=== PATIENT | female | born 1970 | race Caucasian/White ===

== ENCOUNTER 2025-05-24 16:35 | Inpatient (IN) | payer BC, SELFPAY ==
[2025-05-24] VITALS (15 sets, daily range): BP systolic 105–131; BP diastolic 65–93; BMI 30.2
[2025-05-24 12:54] LABS: Venous Blood Gas B.E. 12.6 mmol/L (-4 to +4); Venous Blood Gas O2 Sat % 100.0 %
--- NOTE | 2025-05-24 12:56 | ED.GENMED ---
History of Present Illness
<Willem Merritt PA-C - Last Filed: 05/24/25 14:25>
General
Chief Complaint: Breathing Problem
Time Seen by Provider: 05/24/25 12:36
History of Present Illness
History of Present Illness:
55-year-old female with multiple medical comorbidities most notable for CIDP and end-stage renal disease on dialysis presents from formerly [facility] due to hypoxia. Reportedly not on baseline O2 was noted to be hypoxic in the low 80s on 4
L nasal cannula. Per EMS improved to 100% on 15 L. She is unable to provide any history as she has baseline nonverbal status due to CIDP, reportedly is interactive with yes and no questions at baseline. I spoke with the shortly after the
patient's arrival and she indicates that the patient was recently admitted to a hospital in [facility] before being discharged to formerly [facility] for complications of her CIDP. She has been receiving her dialysis without
issues. Although her paperwork indicates full code the verbally acknowledges that he does not want any aggressive life-saving measures and authorizes DNR/DNI at this time
Review of Systems
<Willem Merritt PA-C - Last Filed: 05/24/25 14:25>
Review of Systems
Allergies reviewed?: Yes
All Other Systems: ROS reviewed and negative except as documented in HPI and ROS
Phy Exam
<Willem Merritt PA-C - Last Filed: 05/24/25 14:25>
Physical Exam
Physical Exam:
GEN: Toxic appearing, tachypneic
HEENT: Oral mucosa moist, no scleral icterus
Cardiac: Regular rate
Lung: Tachypneic with coarse rhonchi heard throughout all lung duarte
MSK: No gross deformity or injuries, dialysis fistula right upper extremity with palpable thrill
Skin: Good color, no pallor or jaundice, no rashes
Neuro: Somnolent, withdraws to pain x 4 extremities
Psych: Calm, cooperative
Scores
<Willem Merritt PA-C - Last Filed: 05/24/25 14:25>
Heart Failure Risk
Heart Failure Risk Score: Not Applicable
Sepsis
<Willem Merritt PA-C - Last Filed: 05/24/25 14:25>
Sepsis Screening
Sepsis Assessment: Sepsis Ruled Out
Sepsis Screen
Sepsis Screen: Sepsis Ruled Out
Date: 05/24/25
Time: 14:25
<Jaime Gotti DO - Last Filed: >
Sepsis Screen
Sepsis Screen: Possible Sepsis
Date: 05/24/25
Time: 12:56
Course
<Willem Merritt PA-C - Last Filed: 05/24/25 14:25>
Orders/Labs/Results
Orders:
Orders
05/24/25 12:37
CR Chest Portable - 1 View Urgent
Comment:
Reason For Exam: sob
Reason Study Needs to be Portable: Patient Unstable
05/24/25 12:41
Complete Blood Count/With Diff Urgent
Comprehensive Metabolic Panel Urgent
Troponin I Urgent
Venous Blood Gas Urgent
%Oxygen/Room Air: 100
05/24/25 12:43
CT Head W/o Iv Contrast Urgent
Comment:
Reason For Exam: AMS
Lactic Acid Q4H
Comment: CANCEL 2nd LACTIC ACID IF 1st LACTIC ACID IS LESS THAN 2
Blood Culture Q30M
MIGUEL ANGEL Source: Blood/Venous
Specimen Description:
05/24/25 12:44
Blood Culture Q30M
MIGUEL ANGEL Source: Blood/Venous
Specimen Description:
05/24/25 12:48
COVID-19 Antigen Urgent
Source: Nasal Swab
Influenza A+B Rapid Molecular Urgent
MIGUEL ANGEL Source: Nasal Swab
Specimen Description:
05/24/25 13:08
Urinalysis Reflex To Culture Urgent
Date Specimen was Collected: 05/24/25
Time Specimen was Collected: 13:02
Urine Microscopic Reflex Cult Urgent
Urine Culture Urgent
MIGUEL ANGEL Source: U
Specimen Description:
Date Specimen was Collected: 05/24/25
Time Specimen was Collected: 13:02
05/24/25 13:36
Furosemide [Lasix] 40 mg IV NOW STA
Abnormal Lab Results
05/24/25 05/24/25 05/24/25
12:41 12:43 13:08
RBC 2.21 L 10^6/uL
(4.20-5.40)
Hgb 7.7 L g/dL
(12.0-16.0)
Hct 23.9 L %
(37.0-47.0)
MCV 108.1 H fL
(81.0-99.0)
MCH 34.8 H pg
(27.0-31.0)
MCHC 32.2 L g/dL
(33.0-37.0)
RDW 16.1 H %
(11.5-14.5)
Absolute Neuts (auto) 6.8 H 10^3/uL
(1.4-6.5)
Absolute Lymphs (auto) 0.7 L 10^3/uL
(1.2-3.4)
Absolute Monos (auto) 0.7 H 10^3/uL
(0.1-0.6)
Neutrophils % 80.5 H %
(42.2-75.2)
Lymphocytes % 8.6 L %
(20.5-51.1)
VBG pCO2 63 H mmHg
(35-48)
VBG pO2 168 H mmHg
(30-50)
VBG HCO3 39.0 H mmol/L
(22-27)
Sodium 132 L mmol/L
(135-145)
Chloride 93 L mmol/L
(98-107)
Carbon Dioxide 35 H mmol/L
(22-30)
BUN 50 H mg/dl
(7-17)
Creatinine 2.0 H mg/dL
(0.6-1.0)
Glucose 155 H mg/dl
(70-99)
Lactic Acid 0.5 L mmol/L
(0.7-2.0)
Total Protein 5.9 L g/dl
(6.3-8.2)
Albumin 3.2 L g/dl
(3.5-5.0)
Ur Occult Blood Reflex 4+ A
(Negative)
Urine Bilirubin 2+ A
(Negative)
Leukocyte Esterase Rfl 3+ A
(Negative)
Urine Albumin (Reflex) 3+ A
(Neg - Trace)
05/24/25 12:41
05/24/25 12:41
Vital Signs
Initial and Last Documented VS:
Initial Vital Signs
Pulse Resp BP Pulse Ox
91 28 118/93 100
05/24/25 12:33 05/24/25 12:33 05/24/25 12:33 05/24/25 12:33
Last Documented Vital Signs
Temp Pulse Resp BP Pulse Ox
97.9 F 93 21 119/71 100
05/24/25 13:03 05/24/25 13:00 05/24/25 13:00 05/24/25 13:00 05/24/25 13:09
<Jaime Gotti, DO - Last Filed: >
Orders/Labs/Results
Orders:
Orders
05/24/25 12:37
CR Chest Portable - 1 View Urgent
Comment:
Reason For Exam: sob
Reason Study Needs to be Portable: Patient Unstable
05/24/25 12:41
Complete Blood Count/With Diff Urgent
Comprehensive Metabolic Panel Urgent
Troponin I Urgent
Venous Blood Gas Urgent
%Oxygen/Room Air: 100
05/24/25 12:43
CT Head W/o Iv Contrast Urgent
Comment:
Reason For Exam: AMS
Lactic Acid Q4H
Comment: CANCEL 2nd LACTIC ACID IF 1st LACTIC ACID IS LESS THAN 2
Blood Culture Q30M
MIGUEL ANGEL Source: Blood/Venous
Specimen Description:
05/24/25 12:44
Blood Culture Q30M
MIGUEL ANGEL Source: Blood/Venous
Specimen Description:
05/24/25 12:48
COVID-19 Antigen Urgent
Source: Nasal Swab
Influenza A+B Rapid Molecular Urgent
MIGUEL ANGEL Source: Nasal Swab
Specimen Description:
05/24/25 13:08
Urinalysis Reflex To Culture Urgent
Date Specimen was Collected: 05/24/25
Time Specimen was Collected: 13:02
Urine Microscopic Reflex Cult Urgent
Urine Culture Urgent
MIGUEL ANGEL Source: U
Specimen Description:
Date Specimen was Collected: 05/24/25
Time Specimen was Collected: 13:02
05/24/25 13:36
Furosemide [Lasix] 40 mg IV NOW STA
Abnormal Lab Results
05/24/25 05/24/25 05/24/25
12:41 12:43 13:08
RBC 2.21 L 10^6/uL
(4.20-5.40)
Hgb 7.7 L g/dL
(12.0-16.0)
Hct 23.9 L %
(37.0-47.0)
MCV 108.1 H fL
(81.0-99.0)
MCH 34.8 H pg
(27.0-31.0)
MCHC 32.2 L g/dL
(33.0-37.0)
RDW 16.1 H %
(11.5-14.5)
Absolute Neuts (auto) 6.8 H 10^3/uL
(1.4-6.5)
Absolute Lymphs (auto) 0.7 L 10^3/uL
(1.2-3.4)
Absolute Monos (auto) 0.7 H 10^3/uL
(0.1-0.6)
Neutrophils % 80.5 H %
(42.2-75.2)
Lymphocytes % 8.6 L %
(20.5-51.1)
VBG pCO2 63 H mmHg
(35-48)
VBG pO2 168 H mmHg
(30-50)
VBG HCO3 39.0 H mmol/L
(22-27)
Sodium 132 L mmol/L
(135-145)
Chloride 93 L mmol/L
(98-107)
Carbon Dioxide 35 H mmol/L
(22-30)
BUN 50 H mg/dl
(7-17)
Creatinine 2.0 H mg/dL
(0.6-1.0)
Glucose 155 H mg/dl
(70-99)
Lactic Acid 0.5 L mmol/L
(0.7-2.0)
Total Protein 5.9 L g/dl
(6.3-8.2)
Albumin 3.2 L g/dl
(3.5-5.0)
Ur Occult Blood Reflex 4+ A
(Negative)
Urine Bilirubin 2+ A
(Negative)
Leukocyte Esterase Rfl 3+ A
(Negative)
Urine Albumin (Reflex) 3+ A
(Neg - Trace)
05/24/25 12:41
05/24/25 12:41
Vital Signs
Initial and Last Documented VS:
Initial Vital Signs
Pulse Resp BP Pulse Ox
91 28 118/93 100
05/24/25 12:33 05/24/25 12:33 05/24/25 12:33 05/24/25 12:33
Last Documented Vital Signs
Temp Pulse Resp BP Pulse Ox
97.9 F 93 21 119/71 100
05/24/25 13:03 05/24/25 13:00 05/24/25 13:00 05/24/25 13:00 05/24/25 13:09
<Willem Merritt PA-C - Last Filed: 05/24/25 14:25>
MDM/Problems Addressed
MDM/Problems Addressed:
Patient was gradually weaned down on oxygen and remained stable on 6 L, no apparent signs of infection at this time, feel that the etiology to her hypoxemia is most likely on the basis of severe volume overload. Apparently according to her nursing
facility this has been an issue for her over the past week but does tend to improve after dialysis treatment. Will admit to the hospitalist service for further management
I did speak with her on numerous occasions to update him on status, at this time he is agreeable to DNR DNI given her frail chronic status and does not want any heroic/invasive measures performed
<Willem Merritt PA-C - Last Filed: 05/24/25 14:25>
*Pulse Oximetry
Patient hypoxic: yes
*Critical Care Note
Total Time (30-74mins, 75-104mins- exclusive of procedures): Not Applicable
<Jaime Gotti DO - Last Filed: >
*Pulse Oximetry
SaO2: 100
Oxygen Mode of Delivery: Non-rebreather mask
ED Attending Note
<Jaime Gotti DO - Last Filed: >
-
Portions of this chart may have been created with voice recognition software.� Occasional wrong word or��sound alike� substitutions may have occurred due to the inherent limitations of voice recognition software.
Discharge Plan
Departure
Patient Disposition: Admit
Date of Disposition: 05/24/25
Time of Disposition: 14:24
Admit to: Med/Surg
Presentation/result/management discussed w/ accepting MD/DO: Hospitalist
Discharge Problem:
Acute hypoxemic respiratory failure, Acute metabolic encephalopathy
Referrals:
Rocío De La Cruz MD [Family Provider]
Interventions
Interventions:
*Risk Screen - Suicide Last Done: 05/24/25 12:33
*General Assessment Last Done: 05/24/25 12:33
*Neglect/Abuse Screening Last Done: 05/24/25 12:33
*ED- Fall Risk Assessment Last Done: 05/24/25 12:33
*ED COVID-19 Vaccine History Last Done: 05/24/25 13:06
*ED Influenza Vaccine History Last Done: 05/24/25 13:06
ED- Cardiac Assessment Last Done: 05/24/25 12:55
ED- Pulmonary Assessment Last Done: 05/24/25 12:55
Discharge Date and Time
Print Language: MOHAWK
[2025-05-24 12:59] LABS: Hematocrit 23.9 % (37.0-47.0); Hemoglobin 7.7 g/dL (12.0-16.0); Mean Corp Hgb Conc. 32.2 g/dL (33.0-37.0); Mean Corpuscular Volume 108.1 fL (81.0-99.0); Nucleated Red Blood Cells % 0 %; Platelet Count 233 10^3/uL (130-400); Red Cell Dist. Width 16.1 % (11.5-14.5)
[2025-05-24 13:09] LABS: ALT (SGPT) 22 U/L (0-35); AST (SGOT) 30 U/L (14-36); Albumin 3.2 g/dl (3.5-5.0); Alkaline Phosphatase 102 U/L (38-126); Blood Urea Nitrogen 50 mg/dl (7-17); Calcium 9.6 mg/dl (8.4-10.2); Carbon Dioxide 35 mmol/L (22-30); Chloride 93 mmol/L (98-107); Glucose 155 mg/dl (70-99); Potassium 3.7 mmol/L (3.5-5.1); Sodium 132 mmol/L (135-145); Total Protein 5.9 g/dl (6.3-8.2); eGFR 28.78
[2025-05-24 13:19] LABS: Troponin I 0.022 ng/ml
[2025-05-24 13:21] LABS: COVID-19 Antigen Negative (Negative)
[2025-05-24 14:04] LABS: Urine Character Cloudy (Clear)
[2025-05-24 14:20] LABS: Urine Squamous Cell >30 /LPF (Few); Urine Urothelial Cell 0-2 /LPF (FEW)
[2025-05-24 14:21] LABS: Urine White Cell >100 /HPF (0-5)
[2025-05-24] MEDS: LASIX 40 MG IV (14:33)
--- NOTE | 2025-05-24 15:22 | HPS.HSE ---
Addendum entered and electronically signed by Alexandrea Page MD 05/24/25 16:09:
This is an addendum to the H&P written by Angelia Henriquez on 05/24/2025. �Patient seen and examined independently with PA.
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
scoliosis, tonic-clonic seizures, presenting from [facility] for hypoxemia while on 4 L. �O2 was increased to 15 L. �Recently hospitalized at [facility] for nausea and vomiting and poor p.o. intake. � She had PEG tube placed during admission there.
Baseline she has been unresponsive much of the time and intermittently answering yes or no questions at best. �No clear etiology could be found for this. �Recently taken off of CPAP. �History of seizures and recently taken off of Trileptal in March
without any seizures noted since then.
Vital signs unremarkable for from hypoxemia requiring 6 L of oxygen currently. �Patient withdrawing to pain with sternal rub but otherwise unresponsive. �Lungs with bilateral significant rhonchi.
Labs show hemoglobin 7.7, macrocytic. �VBG shows pH of 7.4, pCO2 of 63. �Other labs expected given she is hemodialysis patient. �Urinalysis shows greater than 100 WBCs. �COVID-negative.
Chest x-ray shows bilateral pleural effusion and interstitial/alveolar pulmonary opacities suspicious for pulmonary edema.
Patient with acute hypoxemic respiratory failure secondary to volume overload secondary to ESRD. �40 IV Lasix given. �Nephrology consulted for dialysis. �She has chronic hypercarbia and metabolic acidosis but normal pH which is reassuring likely
secondary to underlying obstructive sleep apnea with discontinuation of CPAP.� However no clear etiology for this.� She is maintaining her airway. �She is minimally responsive only to sternal rub/pain which is chronic. �No evidence of seizure
currently. �Check CT head.
Patient with chronic macrocytic anemia. �Check iron studies, B12 and folate. �
Original Note:
Family Physician
-
Family Physician: Rocío A. Chaitas
Chief Complaint
-
Hypoxia
History of Present Illness
Patient is a 55 y/o female past medical history of CIDP, ESRD on HD, DM, HTN, Hypothyroidism, Anxiety and COPD who presents with hypoxia. Patient is essentially non-verbal at baseline, occasionally responds with 'yes' or 'no'. Patient was recently
transferred from [facility] to [facility] a fw weeks ago. Patient was sent to [facility] today for hypoxia. There are reports that patient been more congested between dialysis sessions recently. There are no recorded fevers.
Medical History
Past Medical History
Past Medical History: Reports Other
Additional Past Medical History:
ESRD on HD
Diabetes Mellitus, Type II
Diabetic Neuropathy
Essential Hypertension
Hyperlipidemia
Hypothyroidism
COPD
Chronic Inflammatory Demyelinating Polyneuropathy
Dysphagia s/p PEG tube
GERD
Anxiety / Depression
Obesity
Obstructive Sleep Apnea
Past Surgical History: Reports Other
Additional Past Surgical History:
Right Upper Extremity AV Fistula
Right Lumpectomy
Social History
Tobacco: Former Smoker
Living: [facility]
Family History
Family History: Unable to Obtain
Allergies / Home Medications
Allergies reflects when Allergies were last updated in [employer].
Home Medications with original date entered in [employer]
Allergy/Medication List:
Allergies
Allergy/AdvReac Type Severity Reaction Status Date / Time
Latex, Natural Rubber Allergy Unknown Unknown Verified 05/24/25 12:51
cortisone Allergy Unknown Verified 05/24/25 12:51
peach Allergy Unknown Verified 05/24/25 12:51
Penicillins Allergy Unknown Verified 05/24/25 12:51
pregabalin (From Lyrica) Allergy Unknown Verified 05/24/25 12:51
sunflower seed Allergy Unknown Verified 05/24/25 12:51
Home Medications
acetaminophen 325 mg tablet 650 mg feeding tube Q6H PRN mild pain/fever 05/24/25
albuterol sulfate 90 mcg/actuation aerosol inhaler 2 puff inhalation TID PRN sob 05/24/25
bisacodyl 10 mg rectal suppository [address] DAILY PRN if MOM ineffective 05/24/25
buspirone 10 mg tablet 20 mg feeding tube DAILY 05/24/25
estradiol 1 mg tablet 1 mg feeding tube HS 05/24/25
folic acid 1 mg tablet 1 mg feeding tube DAILY 05/24/25
gabapentin 250 mg/5 mL oral solution 100 mg feeding tube HS 05/24/25
glucagon 3 mg/actuation nasal spray (Baqsimi) 3 mg intranasal DAILYPRN PRN hypoglycemia 05/24/25
insulin glargine 100 unit/mL (3 mL) subcutaneous pen 9 unit SC DAILY 05/24/25
insulin lispro 100 unit/mL subcutaneous pen (Humalog KwikPen (U-100) Insulin) 1 sliding scale dose SC QID 05/24/25
levothyroxine 50 mcg tablet 100 mcg feeding tube DAILY 05/24/25
midodrine 10 mg tablet 10 mg feeding tube TIDPRN PRN hypotension, PRN dialysis 05/24/25
ondansetron HCl 4 mg tablet 4 mg feeding tube Q8H PRN nausea/vomiting 05/24/25
rosuvastatin 10 mg tablet 10 mg feeding tube DAILY 05/24/25
sorbitol 70 % solution 30 ml miscellaneous DAILYPRN PRN constipation 05/24/25
tamsulosin 0.4 mg capsule (Flomax) 0.4 mg HS 05/24/25
thiamine HCl (vitamin B1) 100 mg tablet 100 mg feeding tube DAILY 05/24/25
vitamin B complex-vitamin C-folic acid 0.8 mg tablet (Renal-Jessica) 1 tab feeding tube DAILY 05/24/25
Review of Systems
-
Unable to obtain full review of systems at this time due to: Patient Non-verbal
Physical Exam
Vital Signs
Vital Signs
Temp Pulse Resp BP Pulse Ox
97.9 F 93 21 124/77 100
05/24/25 13:03 05/24/25 13:00 05/24/25 13:00 05/24/25 14:33 05/24/25 13:09
Physical Exam
General: Other (55 y/o chronically ill appearing obese female in no acute distress, responds only to painful stimuli)
HEENT: Other (Dry mucous membranes)
Respiratory: Other (Diffuse rhonchi without use of accessory muscles)
Cardiac: S1/S2 and Regular Rhythm
GI: Soft, Non Tender and Peg Tube
Rectal: Deferred by Provider
Genito-urinary: No Christianson
Musculoskeletal: No Clubbing, No Cyanosis and Other (RUE AV Fistula with good thrill)
Skin: Warm and Dry
Neuro: Other (Responds only to pain)
Psych: Calm
Laboratory Results
-
05/24/25 12:41
05/24/25 12:41
Laboratory Results
Lactic Acid Cancelled 05/24/25 16:45
Total Bilirubin 0.8 mg/dl (0.2-1.3) 05/24/25 12:41
AST 30 U/L (14-36) 05/24/25 12:41
ALT 22 U/L (0-35) 05/24/25 12:41
Alkaline Phosphatase 102 U/L (38-126) 05/24/25 12:41
Troponin I 0.022 ng/ml 05/24/25 12:41
Data Reviewed
-
Diagnostic Radiology: Report Reviewed by me
CT Scan: Report Reviewed by me
Lab Data: Labs Reviewed by me
Old Records: Reviewed
Impression/Plan
-
Acute Hypoxic Respiratory Insufficiency secondary to Pulmonary Edema due to Volume Overload
-Continue supplemental oxygen and wean as able
-Patient received Lasix 40mg IV in ED
-Consult Nephrology for volume management via dialysis
Urinary Tract Infection
-Continue ceftriaxone
-Await urine culture
ESRD on HD
-Nephrology Consult
-Monitor Daily Weights
Diabetes Mellitus, Type II
-Continue glargine
-Monitor sugars and continue coverage insulin
Diabetic Neuropathy
-Hold gabapentin
Hyperlipidemia
-Continue Crestor
Hypothyroidism
-Continue levothyroxine
COPD, no acute exacerbation
-Per old records patient previously on Symbicort
-Continue Budesonide Neb BID
-Continue DuoNeb PRN
Chronic Inflammatory Demyelinating Polyneuropathy
Dysphagia s/p PEG tube
-All meds given via PEG tube
-Continue Nepro at 60ml/hr
-Reduced water flush from 40ml/hr to 25ml/hr due to volume overload
Anxiety / Depression
-Hold buspirone due to mental status
DVT proph: SC Heparin
Code Status: DNR per patient's
--- NOTE | 2025-05-24 16:42 | EDCM ---
CM reviewed chart and spoke to pt's over the phone. Pt currently at [facility] for STR since 05/01/25
Pt was recently admitted to [facility] and discharge to [facility] for STR.
Per pt is wheelchair bound at baseline due to CIDP, has been WC bound for 5 years, was able to operate wheelchair herself prior to hospital admission. She is non verbal at baseline. Had PEG tube placed at [facility]. Is on 4L NC at baseline.
Lived at home with her prior to [facility] admission, he is not sure he will be able to care for her at home. If she needs LTC he would like her to be at a facility closer to home, lives about [place] from [place].
PCP: Rocío De La Cruz at [facility]
Anticipate return to [facility], CM will continue to follow for all discharge planning needs.
--- NOTE | 2025-05-24 17:24 | W.CON.NEPH ---
Consultation
-
Date/Time Consultation Requested: May 24, 2025 at 3 PM
Date/Time Consultation Performed: May 24, 2025 at 5 PM
Requesting Provider: Dr. Merritt
Performing Provider: Dr. Levine
Reason for Consultation: End-stage renal disease
Medical History
-
Chief Complaint: ESRD
History of Present Illness:
55-year-old female with multiple medical comorbidities most notable for CIDP and end-stage renal disease on dialysis presents from [facility] due to hypoxia. Reportedly not on baseline O2 was noted to be hypoxic in the low 80s on 4
L nasal cannula. Per EMS improved to 100% on 15 L. She is unable to provide any history as she has baseline nonverbal status due to CIDP, reportedly is interactive with yes and no questions at baseline
Renal consultation for end-stage renal disease and a pulmonary edema. Currently she is on 6 L oxygen. She appears to be in no distress
Other history includes diabetes hypertension anemia of chronic disease COPD. She was a transfer from [facility] where she had a PEG tube placed at that admission.
Past Medical History
Diabetes, hypertension, PEG tube, nonverbal, ESRD, COPD
Social History
Unobtainable
Family History
Family History: Not Pertinent
Allergies / Home Medications
Allergy/AdvReac Type Severity Reaction Status Date / Time
Latex, Natural Rubber Allergy Unknown Unknown Verified 05/24/25 12:51
cortisone Allergy Unknown Verified 05/24/25 12:51
peach Allergy Unknown Verified 05/24/25 12:51
Penicillins Allergy Unknown Verified 05/24/25 12:51
pregabalin (From Lyrica) Allergy Unknown Verified 05/24/25 12:51
sunflower seed Allergy Unknown Verified 05/24/25 12:51
�Medication �Instructions �Recorded �Confirmed �Type
acetaminophen 325 mg tablet 650 mg feeding tube Q6H PRN mild 05/24/25 05/24/25 History
pain/fever
albuterol sulfate 90 mcg/actuation 2 puff inhalation TID PRN sob 05/24/25 05/24/25 History
aerosol inhaler
bisacodyl 10 mg rectal suppository 10 mg FL DAILY PRN if MOM 05/24/25 05/24/25 History
ineffective
buspirone 10 mg tablet 20 mg feeding tube DAILY 05/24/25 05/24/25 History
estradiol 1 mg tablet 1 mg feeding tube HS 05/24/25 05/24/25 History
folic acid 1 mg tablet 1 mg feeding tube DAILY 05/24/25 05/24/25 History
gabapentin 250 mg/5 mL oral 100 mg feeding tube HS 05/24/25 05/24/25 History
solution
glucagon 3 mg/actuation nasal 3 mg intranasal DAILYPRN PRN 05/24/25 05/24/25 History
spray (Baqsimi) hypoglycemia
insulin glargine 100 unit/mL (3 9 unit SC DAILY 05/24/25 05/24/25 History
mL) subcutaneous pen
insulin lispro 100 unit/mL 1 sliding scale dose SC QID 05/24/25 05/24/25 History
subcutaneous pen (Humalog KwikPen
(U-100) Insulin)
levothyroxine 50 mcg tablet 100 mcg feeding tube DAILY 05/24/25 05/24/25 History
midodrine 10 mg tablet 10 mg feeding tube TIDPRN PRN 05/24/25 05/24/25 History
hypotension, PRN dialysis
ondansetron HCl 4 mg tablet 4 mg feeding tube Q8H PRN 05/24/25 05/24/25 History
nausea/vomiting
rosuvastatin 10 mg tablet 10 mg feeding tube DAILY 05/24/25 05/24/25 History
sorbitol 70 % solution 30 ml miscellaneous DAILYPRN PRN 05/24/25 05/24/25 History
constipation
tamsulosin 0.4 mg capsule (Flomax) 0.4 mg HS 05/24/25 05/24/25 History
thiamine HCl (vitamin B1) 100 mg 100 mg feeding tube DAILY 05/24/25 05/24/25 History
tablet
vitamin B complex-vitamin C-folic 1 tab feeding tube DAILY 05/24/25 05/24/25 History
acid 0.8 mg tablet (Renal-Jessica)
Review of Systems
-
Unable to obtain full review of systems at this time due to: Patient Non Verbal
Physical Exam
Vital Signs
Vital Signs
Temp Pulse Resp BP Pulse Ox
97.9 F 88 19 128/68 100
05/24/25 13:03 05/24/25 17:00 05/24/25 17:00 05/24/25 17:00 05/24/25 15:30
Lab Results
WBC 8.4 10^3/uL (4.8-10.8) 05/24/25 12:41
RBC 2.21 10^6/uL (4.20-5.40) L 05/24/25 12:41
Hgb 7.7 g/dL (12.0-16.0) L 05/24/25 12:41
Hct 23.9 % (37.0-47.0) L 05/24/25 12:41
Plt Count 233 10^3/uL (130-400) 05/24/25 12:41
Sodium 132 mmol/L (135-145) L 05/24/25 12:41
Potassium 3.7 mmol/L (3.5-5.1) 05/24/25 12:41
Chloride 93 mmol/L (98-107) L 05/24/25 12:41
Carbon Dioxide 35 mmol/L (22-30) H 05/24/25 12:41
BUN 50 mg/dl (7-17) H 05/24/25 12:41
Creatinine 2.0 mg/dL (0.6-1.0) H 05/24/25 12:41
eGFR 28.78 05/24/25 12:41
Glucose 155 mg/dl (70-99) H 05/24/25 12:41
Calcium 9.6 mg/dl (8.4-10.2) 05/24/25 12:41
Albumin 3.2 g/dl (3.5-5.0) L 05/24/25 12:41
Physical Exam
General no acute distress
HEENT no scleral icterus no JVD neck supple
lungs coarse bilateral with rales
heart regular S1-S2 positive
abdomen soft nontender positive bowel sounds PEG tube
extremities +1 edema pulses present bilateral
Neurologically nonverbal
Skin no lesions no abrasions no petechiae
Psych flat
Data Reviewed
-
Radiology: Image Personally Visualized and interpreted
Labs: Labs Reviewed by me and Discussed with Nurse
Assessment/Plan
-
55-year-old female with multiple medical comorbidities most notable for CIDP and end-stage renal disease on dialysis presents from [facility] due to hypoxia. Reportedly not on baseline O2 was noted to be hypoxic in the low 80s on 4
L nasal cannula. Per EMS improved to 100% on 15 L. She is unable to provide any history as she has baseline nonverbal status due to CIDP, reportedly is interactive with yes and no questions at baseline
Renal consultation for end-stage renal disease and a pulmonary edema. Currently she is on 6 L oxygen. She appears to be in no distress
Other history includes diabetes hypertension anemia of chronic disease COPD. She was a transfer from [facility] where she had a PEG tube placed at that admission.
Impression
ESRD Sunday at [facility]
Hypoxia history of COPD chronic nasal cannula at 4 L
Pulmonary edema
PEG tube
Right arm AV fistula
Plan.
40 mg IV Lasix given in the ER I will give 120 [address]
Place Christianson catheter
She is on 6 L of oxygen just slightly above her baseline.
No acute need for dialysis from an electrolyte standpoint but will monitor for need for ultrafiltration throughout the evening but will plan on doing dialysis first thing in the morning as discussed with my dialysis nurse.
I discussed with ER nurse
Epogen for anemia
Follow cultures
[2025-05-24] MEDS: LASIX 100 MG IV (18:09)
[2025-05-24] MEDS: DUONEB 3 ML INH (21:20)
[2025-05-24] MEDS: PULMICORT 0.5 MG INH (21:20)
[2025-05-24] MEDS: ROCEPHIN 1000 MG IV (21:33)
[2025-05-24] MEDS: STERILE WATER FOR INJECTION 10 ML IV (21:33)
[2025-05-24] MEDS: HEPARIN 5000 UNITS SC (21:34)
[2025-05-24] MEDS: ROBITUSSIN 200 MG TUBE (21:35)
[2025-05-24] MEDS: FLOMAX 0.4 MG TUBE (21:35)
[2025-05-24] MEDS: HEPARIN SC (21:38)
[2025-05-24 23:10] LABS: Glucose - Point of Care 147 mg/dl (70-99)
[2025-05-24] MEDS: NOVOLOG FLEXPEN-LOW RESISTANCE SC (23:10)
[2025-05-25 03:07] VITALS: BP 106/62
[2025-05-25] MEDS: SYNTHROID 100 MCG TUBE (05:07)
[2025-05-25 05:13] LABS: Glucose - Point of Care 229 mg/dl (70-99)
[2025-05-25 05:19] VITALS: BMI 30.3
[2025-05-25] MEDS: NOVOLOG FLEXPEN-LOW RESISTANCE 2 UNITS SC (05:26)
[2025-05-25] MEDS: DESENEX/MITRAZOL/ZEASORB 1 APPLIC TOPICAL ×2 (07:47→20:44)
[2025-05-25] MEDS: HEPARIN SC (07:47)
[2025-05-25 07:59] VITALS: BP 121/66
[2025-05-25 08:02] LABS: Hematocrit 21.2 % (37.0-47.0); Hemoglobin 7.0 g/dL (12.0-16.0); Mean Corp Hgb Conc. 33.0 g/dL (33.0-37.0); Mean Corpuscular Volume 103.9 fL (81.0-99.0); Platelet Count 202 10^3/uL (130-400); Red Cell Dist. Width 15.9 % (11.5-14.5)
[2025-05-25 08:14] LABS: Blood Urea Nitrogen 58 mg/dl (7-17); Calcium 9.4 mg/dl (8.4-10.2); Carbon Dioxide 36 mmol/L (22-30); Chloride 93 mmol/L (98-107); Estimated Creatinine Clearance 30 ml/min; Glucose 182 mg/dl (70-99); Iron 34 ug/dl (37-170); Magnesium 2.5 mg/dl (1.6-2.3); Potassium 3.4 mmol/L (3.5-5.1); Sodium 132 mmol/L (135-145); eGFR 22.02
[2025-05-25] MEDS: MANNITOL 25% 12.5 GRAMS IV (08:15)
[2025-05-25] MEDS: PULMICORT 0.5 MG INH ×2 (08:19→18:03)
--- NOTE | 2025-05-25 08:22 | W.PN.HOSP.TC ---
Addendum entered and electronically signed by Dotty Simon MD 05/25/25 19:15:
I saw and evaluated the patient independently. I reviewed the resident�s note and agree with findings and plan as documented by Dr. Rudolph.
GENERAL: well developed, well nourished, female in no apparent distress--not responsive
HEENT: NC/AT--O2 NC [address]
HEART: regular rate and rhythm, +S1, +S2, continuous holosystolic murmur with possible diastolic murmur?
LUNGS : clear to auscultation bilaterally
ABDOM: soft, nontender, nondistended, + bowel sounds
EXT: no cyanosis, clubbing, or edema
NEUROLOGIC: bedbound
: curran
Acute on Chronic Hypoxic Respiratory Failure secondary to Pulmonary Edema due to Volume Overload--wean O2 as able--was on 15L at one point, now down to 4L--received lasix but is on HD--apprec renal, got HD today and possible ultrafiltration tomorrow
if needs
Suspected urinary Tract Infection--cont rocephin--urine culture with yeast but it is NOT a clean catch--would replace curran and resend urine--consider ID consult
ESRD on HD--Nephrology Consulted--Monitor Daily Weights
Diabetes Mellitus, Type II with neuropathy--Continue glargine--Monitor sugars and continue coverage insulin--holding gabapentin
Anemia of chronic disease--Hemoglobin 7.7 on admission 05/24/2025. Hemoglobin 7.0 on 05/25/2025--Iron 34 low, TIBC 186 low, percent saturation 18 low, ferritin 1180 high-- 10,000 units EPO given 05/25/25--consider transfusing 1 unit pRBC in AM if AM
labs still low
Hyperlipidemia--Continue Crestor
Hypothyroidism--Continue levothyroxine
COPD, no acute exacerbation--Per old records patient previously on Symbicort-Continue Budesonide Neb BID-Continue DuoNeb PRN
Chronic Inflammatory Demyelinating Polyneuropathy--Dysphagia s/p PEG tube--Reduced water flush from 40ml/hr to 25ml/hr due to volume overload--Continue Nepro dialysis nutrition at 60ml/hr, pending information on patient's home nutrition at prior
facility
Anxiety / Depression--Hold buspirone due to mental status
DVT proph-- SC Heparin
Code Status-- DNR per patient's
- Communicated with [facility] and confirmed patient was not on hospice (a point of confusion during nursing handoff)
Original Note:
Today's Communication/Plan
-
Hemoglobin dropped from 7.7-7.0 over 1-day. Iron studies consistent with anemia of chronic disease. 10,000 units EPO given by nephrology. Follow-up on hemoglobin tomorrow morning.
Urine culture: yeast. Urine sample likely contaminated since there were greater than 30 squamous epithelial cells on UA.
� Change Curran and straight cath for repeat urine sample. May consult ID if repeat urine sample demonstrates yeast again.
Spoke with . Obtained consent for blood transfusions and inquired about patient's baseline mental status as well as PMH.
Assessment / Plan
Assessment / Plan
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
scoliosis, tonic-clonic seizures, presenting from [facility] for hypoxemia while on 4 L. O2 was increased to 15 L. Recently hospitalized at [facility] for nausea and vomiting and poor p.o. intake. She had PEG tube placed during admission there.
Baseline she has been unresponsive much of the time and intermittently answering yes or no questions at best. No clear etiology could be found for this. Recently taken off of CPAP. History of seizures and recently taken off of Trileptal in March
without any seizures noted since then.
CM called [facility] and confirmed her baseline mental status: nonresponsive except for one-word responses, dependent on others for ADLs.
Spoke with 05/25/25. 2 months ago, she had multiple seizures and stayed at [facility]. When they didn't have much else they could do much for her and sent her to [facility] rehab. She was able speak some sentences but would slow down
after a few sentences like she was 'running out of gas'. Antiepileptics were helping so discontinued. took her to [facility] for fluid in lungs. They plan to visit her 05/26/25. They [place] 2[place] hours away. She was her usual active self in 03/2025.
- She was diagnosed with CIDP 5 years ago. Infusion treatments weren't helping so discontinued.
- Asked if consented to blood transfusions if needed. Informed him of risks. He gave consent for blood transfusions.
Acute on Chronic Hypoxic Respiratory Insufficiency secondary to Pulmonary Edema due to Volume Overload
-Continue supplemental oxygen and wean as able
-Patient received Lasix 40mg IV in ED
-Consulted Nephrology for volume management via dialysis
� Flu panel negative
� Blood cultures x 2 pending
Suspected urinary Tract Infection
- Continue ceftriaxone
� Urine sample likely contaminated since there were greater than 30 squamous epithelial cells on UA. Reflex urine culture: yeast
� Change Curran and straight cath for repeat urine sample
ESRD on HD
-Nephrology Consulted
-Monitor Daily Weights
Diabetes Mellitus, Type II
-Continue glargine
-Monitor sugars and continue coverage insulin
Anemia of chronic disease
Hemoglobin 7.7 on admission 05/24/2025. Hemoglobin 7.0 on 05/25/2025
Iron 34 low, TIBC 186 low, percent saturation 18 low, ferritin 1180 high
- 10,000 units EPO given 05/25/25
Diabetic Neuropathy
-Hold gabapentin
Hyperlipidemia
-Continue Crestor
Hypothyroidism
-Continue levothyroxine
COPD, no acute exacerbation
-Per old records patient previously on Symbicort
-Continue Budesonide Neb BID
-Continue DuoNeb PRN
Chronic Inflammatory Demyelinating Polyneuropathy
Dysphagia s/p PEG tube
-All meds given via PEG tube
-Reduced water flush from 40ml/hr to 25ml/hr due to volume overload
-Continue Nepro dialysis nutrition at 60ml/hr, pending information on patient's home nutrition at prior facility
Anxiety / Depression
-Hold buspirone due to mental status
DVT proph: SC Heparin
Code Status: DNR per patient's
- Communicated with [facility] and confirmed patient was not on hospice (a point of confusion during nursing handoff)
Anticipated Discharge: 24 - 48 hours
Subjective/Interval History
-
Date of Service: May 25, 2025
Patient non-verbal and non-responsive. Occasionally groaned.
Nurse denied bloody BMs.
Objective Data
-
Labs:
Laboratory Results
LABS
WBC 9.7 10^3/uL (4.8-10.8) 05/25/25 07:35
RBC 2.04 10^6/uL (4.20-5.40) L 05/25/25 07:35
Hgb 7.0 g/dL (12.0-16.0) L 05/25/25 07:35
Hct 21.2 % (37.0-47.0) L 05/25/25 07:35
MCV 103.9 fL (81.0-99.0) H 05/25/25 07:35
MCH 34.3 pg (27.0-31.0) H 05/25/25 07:35
MCHC 33.0 g/dL (33.0-37.0) 05/25/25 07:35
RDW 15.9 % (11.5-14.5) H 05/25/25 07:35
Plt Count 202 10^3/uL (130-400) 05/25/25 07:35
MPV 10.1 fL (7.4-10.4) 05/25/25 07:35
Abs Immat Gran (auto) 0.0 10^3/uL (0-0.05) 05/24/25 12:41
Absolute Neuts (auto) 6.8 10^3/uL (1.4-6.5) H 05/24/25 12:41
Absolute Lymphs (auto) 0.7 10^3/uL (1.2-3.4) L 05/24/25 12:41
Absolute Monos (auto) 0.7 10^3/uL (0.1-0.6) H 05/24/25 12:41
Absolute Eos (auto) 0.1 10^3/uL (0-0.7) 05/24/25 12:41
Absolute Basos (auto) 0.0 10^3/uL (0-0.2) 05/24/25 12:41
Immature Gran % 0.4 % (0-0.5) 05/24/25 12:41
Neutrophils % 80.5 % (42.2-75.2) H 05/24/25 12:41
Lymphocytes % 8.6 % (20.5-51.1) L 05/24/25 12:41
Monocytes % 8.4 % (1.7-9.3) 05/24/25 12:41
Eosinophils % 1.6 % (0-6) 05/24/25 12:41
Basophils % 0.5 % (0-2) 05/24/25 12:41
Nucleated RBC % 0 % 05/24/25 12:41
VBG pH 7.40 (7.32-7.43) 05/24/25 12:41
VBG pCO2 63 mmHg (35-48) H 05/24/25 12:41
VBG pO2 168 mmHg (30-50) H 05/24/25 12:41
VBG HCO3 39.0 mmol/L (22-27) H 05/24/25 12:41
VBG O2 Sat ([place]) 100.0 % 05/24/25 12:41
VBG Base Excess 12.6 mmol/L (-4 to +4) 05/24/25 12:41
VBG O2 Therapy 05/24/25 12:41
Sodium 132 mmol/L (135-145) L 05/25/25 07:35
Potassium 3.4 mmol/L (3.5-5.1) L 05/25/25 07:35
Chloride 93 mmol/L (98-107) L 05/25/25 07:35
Carbon Dioxide 36 mmol/L (22-30) H 05/25/25 07:35
BUN 58 mg/dl (7-17) H 05/25/25 07:35
Creatinine 2.5 mg/dL (0.6-1.0) H 05/25/25 07:35
Estimated Creat Clear 30 ml/min 05/25/25 07:35
eGFR 22.02 05/25/25 07:35
Glucose 182 mg/dl (70-99) H 05/25/25 07:35
Hemoglobin A1c 5.2 % (4.0-5.6) 05/25/25 07:35
Lactic Acid Cancelled 05/24/25 16:45
Calcium 9.4 mg/dl (8.4-10.2) 05/25/25 07:35
Phosphorus 4.2 mg/dl (2.5-4.5) 05/25/25 07:35
Magnesium 2.5 mg/dl (1.6-2.3) H 05/25/25 07:35
Iron 34 ug/dl (37-170) L 05/25/25 07:35
TIBC 186 ug/dl (265-497) L 05/25/25 07:35
% Saturation 18 % (20-50) L 05/25/25 07:35
Ferritin 1180.0 ng/ml (11.1-264.0) H 05/25/25 07:35
Total Bilirubin 0.8 mg/dl (0.2-1.3) 05/24/25 12:41
AST 30 U/L (14-36) 05/24/25 12:41
ALT 22 U/L (0-35) 05/24/25 12:41
Alkaline Phosphatase 102 U/L (38-126) 05/24/25 12:41
Troponin I 0.022 ng/ml 05/24/25 12:41
Total Protein 5.9 g/dl (6.3-8.2) L 05/24/25 12:41
Albumin 3.2 g/dl (3.5-5.0) L 05/24/25 12:41
Vitamin B12 853 pg/ml (239-931) 05/25/25 07:35
Folate > 20.0 ng/ml (2.76-20) H 05/25/25 07:35
TSH (Reflex) 3.58 uIU/ml (0.47-4.68) 05/25/25 07:35
Urine Color Yellow 05/24/25 13:08
Urine Clarity Cloudy (Clear) 05/24/25 13:08
Urine pH 5.0 (5.0-9.0) 05/24/25 13:08
Ur Specific [place] 1.015 (<1.030) 05/24/25 13:08
Urine Ketones Negative (Negative) 05/24/25 13:08
Ur Occult Blood Reflex 4+ (Negative) A 05/24/25 13:08
Urine Nitrite (Reflex) Negative (Negative) 05/24/25 13:08
Urine Bilirubin 2+ (Negative) A 05/24/25 13:08
Urine Urobilinogen 1+ (Neg - 1+) 05/24/25 13:08
Leukocyte Esterase Rfl 3+ (Negative) A 05/24/25 13:08
Urine RBC 11-15 /HPF (0-2) A 05/24/25 13:08
Urine WBC (Reflex) >100 /HPF (0-5) A 05/24/25 13:08
Ur Squamous Epith Cells >30 /LPF (Few) 05/24/25 13:08
Ur Urothelial Cells 0-2 /LPF (FEW) 05/24/25 13:08
Urine Bacteria (Reflex) Few (Negative) A 05/24/25 13:08
Urine Glucose Negative (Negative) 05/24/25 13:08
Urine Albumin (Reflex) 3+ (Neg - Trace) A 05/24/25 13:08
SARS-CoV-2 Antigen Negative (Negative) 05/24/25 12:48
POC Glucose 163 mg/dl (70-99) H 05/25/25 17:16
Blood Type A POS 05/25/25 10:42
Blood Type Confirm A POS 05/25/25 10:59
Antibody Screen Negative (Negative) 05/25/25 10:42
Intake /Output/Weight
05/23/25 05/24/25 05/25/25 05/26/25
06:59 06:59 06:59 06:59
Intake Total 420 / 420 300 / 300
Output Total 125 / 125 50 / 50
Balance 295 / 295 250 / 250
Vital Signs:
Vital Signs
Temp Pulse Resp BP Pulse Ox
97.8 F 63 16 121/66 96
05/25/25 07:59 05/25/25 08:21 05/25/25 08:21 05/25/25 07:59 05/25/25 08:21
I&O
05/24/25 05/25/25 05/26/25
06:59 06:59 06:59
Intake Total 420 / 420
Output Total 125 / 125
Balance 295 / 295
Physical Exam
-
General: Well Developed, Well Nourished and Appears Chronically Ill; Negative Conversant
HEENT: Normocephalic, Atraumatic, Nose Appears Normal and Ears Appear Normal; Negative Oxygen
Respiratory: Clear to Auscultation
Cardiac: Regular Rhythm and S1/S2
GI: Soft, Nontender, Nondistended and Normal Bowel Sounds
Musculoskeletal: Edema, Right Upper Extrem and Edema, Left Upper Extrem
Skin: Warm and Dry
Neuro: Negative Oriented
[2025-05-25 08:26] LABS: Total Iron Binding Capacity 186 ug/dl (265-497)
[2025-05-25] MEDS: RETACRIT 10000 UNITS IV (08:26)
--- NOTE | 2025-05-25 08:39 | W.PN.NEPH.HD ---
Assessment
-
Patient seen on dialysis
Systolic blood pressure at 97
HD via right upper extremity AV fistula
K bath change from 2-4
No heparin
10,000 epo
Progress Note - Hemodialysis
-
Date of Service: May 25, 2025
Duration: 30 minutes and 3 hours
Potassium Bath: 4
Calcium Bath: 2.5
Opti-Dialyzer: 160
Ultrafiltration: Other (3kg)
Blood Flow: 400
Dialysate Flow: 600
Heparin: none
EPO: 10K
[2025-05-25 08:57] LABS: Glycohemoglobin (HgbA1c) 5.2 % (4.0-5.6)
--- NOTE | 2025-05-25 09:19 | PTCARENOTE ---
Hgb 7.0 this AM, resident made aware verbally (tiger-text function down at this time). Order in for 40 of noncrushable PO potassium, MD aware to change order for medication that can be given through peg tube. No new orders at this time.
[2025-05-25 09:22] LABS: Folate > 20.0 ng/ml (2.76-20); Vitamin B12 853 pg/ml (239-931)
[2025-05-25 09:35] LABS: Ferritin 1180.0 ng/ml (11.1-264.0)
[2025-05-25] MEDS: LANTUS 0.06 UNITS SC (09:36)
[2025-05-25 11:07] VITALS: BP 140/80
[2025-05-25 11:09] VITALS: BMI 30.3
[2025-05-25] MEDS: ROBITUSSIN 200 MG TUBE ×3 (11:41→22:04)
[2025-05-25] MEDS: KCL ELIXIR 40 MEQ TUBE (11:41)
[2025-05-25] MEDS: CRESTOR 10 MG TUBE (11:41)
[2025-05-25 11:53] LABS: Glucose - Point of Care 162 mg/dl (70-99)
[2025-05-25] MEDS: NOVOLOG FLEXPEN-LOW RESISTANCE 1 UNITS SC ×2 (12:00→17:18)
[2025-05-25] MEDS: ROBITUSSIN TUBE (12:05)
[2025-05-25 15:00] VITALS: BP 133/95
[2025-05-25] MEDS: HEPARIN 5000 UNITS SC (15:05)
--- NOTE | 2025-05-25 16:00 | PTCARENOTE ---
Tube feeding hung per order.
--- NOTE | 2025-05-25 16:51 | CM ---
Patient seen at bedside with [facility] on [address]. Patient from [facility] with HD. Patient able to return when medically appropriate. CM will call to patient family to review. CM will continue to follow for discharge planning needs.
Plan; [facility] return
[2025-05-25 17:17] LABS: Glucose - Point of Care 163 mg/dl (70-99)
[2025-05-25 18:52] LABS: Hepatitis B Surface Antigen Negative (Negative)
[2025-05-25 19:23] VITALS: BP 124/73
[2025-05-25] MEDS: ROCEPHIN 1000 MG IV (20:45)
[2025-05-25] MEDS: STERILE WATER FOR INJECTION 10 ML IV (20:46)
[2025-05-25] MEDS: FLOMAX 0.4 MG TUBE (22:04)
[2025-05-25 23:21] VITALS: BP 137/72
[2025-05-26 00:34] LABS: Glucose - Point of Care 208 mg/dl (70-99)
[2025-05-26] MEDS: NOVOLOG FLEXPEN-LOW RESISTANCE 2 UNITS SC ×4 (00:35→23:58)
[2025-05-26] MEDS: HEPARIN 5000 UNITS SC ×4 (00:35→23:57)
[2025-05-26 03:27] VITALS: BP 129/66
[2025-05-26 05:12] LABS: Urine Character Cloudy (Clear)
[2025-05-26 05:49] LABS: Urine White Cell >100 /HPF (0-5)
[2025-05-26 06:00] VITALS: BMI 29.2
[2025-05-26 06:08] LABS: Glucose - Point of Care 222 mg/dl (70-99)
[2025-05-26 07:05] VITALS: BP 130/68
[2025-05-26] MEDS: PULMICORT 0.5 MG INH ×2 (07:38→19:43)
[2025-05-26] MEDS: DUONEB 3 ML INH ×2 (07:38→19:43)
[2025-05-26] MEDS: CRESTOR 10 MG TUBE (08:01)
[2025-05-26] MEDS: ROBITUSSIN 200 MG TUBE ×3 (08:01→21:55)
[2025-05-26] MEDS: SYNTHROID 100 MCG TUBE (08:02)
[2025-05-26] MEDS: LANTUS 0.06 UNITS SC (08:03)
[2025-05-26] MEDS: DESENEX/MITRAZOL/ZEASORB 1 APPLIC TOPICAL ×2 (08:04→20:23)
--- NOTE | 2025-05-26 08:48 | W.PN.HOSP.TC ---
Addendum entered and electronically signed by Dotty Simon MD 05/26/25 21:07:
I saw and evaluated the patient independently. I reviewed and discussed the resident�s note and agree with findings and plan as documented by Dr. Rudolph.
GENERAL: well developed, well nourished, female in no apparent distress--not responsive
HEENT: NC/AT--O2 NC in place
HEART: regular rate and rhythm, +S1, +S2, continuous holosystolic murmur with possible diastolic murmur?
LUNGS : clear to auscultation bilaterally
ABDOM: soft, nontender, nondistended, + bowel sounds
EXT: no cyanosis, clubbing, or edema
NEUROLOGIC: bedbound
: curran
Acute on Chronic Hypoxic Respiratory Failure secondary to Pulmonary Edema due to Volume Overload--wean O2 as able--was on 15L at one point, now down to 4L--received lasix but is on HD--apprec renal, got HD today and ultrafiltration
Suspected urinary Tract Infection--cont rocephin--urine culture with yeast but it is NOT a clean catch-- curran replaced and urine resent--clean catch, await culture---consider ID consult if yeast still present
ESRD on HD--Nephrology Consulted--Monitor Daily Weights
Diabetes Mellitus, Type II with neuropathy--Continue glargine--Monitor sugars and continue coverage insulin--holding gabapentin
Anemia of chronic disease--Hemoglobin 7.7 on admission 05/24/2025. Hemoglobin 7.0 on 05/25/2025--Iron 34 low, TIBC 186 low, percent saturation 18 low, ferritin 1180 high-- 10,000 units EPO given 05/25/25--consider transfusing 1 unit pRBC
Hyperlipidemia--Continue Crestor
Hypothyroidism--Continue levothyroxine
COPD, no acute exacerbation--Per old records patient previously on Symbicort-Continue Budesonide Neb BID-Continue DuoNeb PRN
Chronic Inflammatory Demyelinating Polyneuropathy--Dysphagia s/p PEG tube--Reduced water flush from 40ml/hr to 25ml/hr due to volume overload--Continue Nepro dialysis nutrition at 60ml/hr
Anxiety / Depression--Hold buspirone due to mental status
DVT proph-- SC Heparin
Code Status-- DNR per patient's
Original Note:
Today's Communication/Plan
-
UA #2 positive for UTI. Continue ceftriaxone, pending urine culture #2 identification sensitivities. May consult ID
Received ultrafiltration today 05/26/2025 for volume overload with anasarca.
New echo pending for 5 out of 6 holosystolic murmur best heard at the left upper sternal border.
Working on completing blood consent form, as consent was obtained from .
Assessment / Plan
Assessment / Plan
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
scoliosis, tonic-clonic seizures, presenting from [facility] for hypoxemia while on 4 L. O2 was increased to 15 L. Recently hospitalized at [facility] for nausea and vomiting and poor p.o. intake. She had PEG tube placed during admission there.
Baseline she has been unresponsive much of the time and intermittently answering yes or no questions at best. No clear etiology could be found for this. Recently taken off of CPAP. History of seizures and recently taken off of Trileptal in March
without any seizures noted since then.
CM called [facility] and confirmed her baseline mental status: nonresponsive except for one-word responses, dependent on others for ADLs.
Spoke with 05/25/25. 2 months ago, she had multiple seizures and stayed at [facility]. When they didn't have much else they could do much for her and sent her to [facility] rehab. She was able speak some sentences but would slow down
after a few sentences like she was 'running out of gas'. Antiepileptics were helping so discontinued. took her to [facility] for fluid in lungs. They plan to visit her 05/26/25. They live 2[place]5 hours away. She was her usual active self in 03/2025.
- She was diagnosed with CIDP 5 years ago. Infusion treatments weren't helping so discontinued.
- Asked if consented to blood transfusions if needed. Informed him of risks. He gave consent for blood transfusions.
Plan
Urinary Tract Infection
UA positive for UTI x 2. Change Curran in between 2 samples
Urine culture #1: Yeast 50,000 colonies. May be contaminated since there were greater than 30 squamous epithelial cells
Urine culture #2: Pending
- Continue ceftriaxone, pending urine sample to culture identification and sensitivities. May consult ID
ESRD on HD
-Nephrology Consulted
-Monitor Daily Weights
�Received ultrafiltration today 05/26/2025 for volume overload with anasarca
5/6 holosystolic murmur best heard at LUSB
� Echo pending
Diabetes Mellitus, Type II
-Continue glargine
-Monitor sugars and continue coverage insulin
Anemia of chronic disease
Hemoglobin 7.7 on admission 05/24/2025. Hemoglobin 7.0 on 05/25/2025
Iron 34 low, TIBC 186 low, percent saturation 18 low, ferritin 1180 high
- 10,000 units EPO given 05/25/25
� Consent for blood products obtained from with co-resident as witness. Working on completing consent form
Acute on Chronic Hypoxic Respiratory Insufficiency secondary to Pulmonary Edema due to Volume Overload�resolved
-Continue supplemental oxygen and wean as able. On 4 L on 05/26/2025, which is her home O2 requirement
-Patient received Lasix 40mg IV in ED
-Consulted Nephrology for volume management via dialysis
� Flu panel negative
� Blood cultures x 2; no growth to date
Diabetic Neuropathy
-Hold gabapentin
Hyperlipidemia
-Continue Crestor
Hypothyroidism
-Continue levothyroxine
COPD, no acute exacerbation
-Per old records patient previously on Symbicort
-Continue Budesonide Neb BID
-Continue DuoNeb PRN
Chronic Inflammatory Demyelinating Polyneuropathy
Dysphagia s/p PEG tube
-All meds given via PEG tube
-Reduced water flush from 40ml/hr to 25ml/hr due to volume overload
-Continue Nepro dialysis nutrition at 60ml/hr
Anxiety / Depression
-Hold buspirone due to mental status
DVT proph: SC Heparin
Code Status: DNR per patient's
- Communicated with [facility] and confirmed patient was not on hospice (a point of confusion during nursing handoff)
Anticipated Discharge: > 48 hours
Subjective/Interval History
-
Date of Service: May 26, 2025
No acute events overnight. Patient was more alert this morning, moving upper extremities, responding with single words to some questions, and groaning more. She responded no to the question of abdominal pain.
Nurse noted that PEG tube was clogged. Blockage resolved with sodium HCO3.
Objective Data
-
Labs:
Laboratory Results
Laboratory Results
05/26/25 08:02
05/26/25 08:02
Lactic Acid Cancelled 05/24/25 16:45
Total Bilirubin 0.8 mg/dl (0.2-1.3) 05/24/25 12:41
AST 30 U/L (14-36) 05/24/25 12:41
ALT 22 U/L (0-35) 05/24/25 12:41
Alkaline Phosphatase 102 U/L (38-126) 05/24/25 12:41
Troponin I 0.022 ng/ml 05/24/25 12:41
Vital Signs:
Vital Signs
Temp Pulse Resp BP Pulse Ox
98.8 F 66 18 130/68 98
05/26/25 07:05 05/26/25 07:40 05/26/25 07:40 05/26/25 07:05 05/26/25 07:40
I&O
05/25/25 05/26/2505/27/25
06:59 06:59 06:59
Intake Total 420 / 420 300 / 300
Output Total 125 / 125 200 / 200
Balance 295 / 295 100 / 100
Review of Systems
-
Unable to obtain full review of systems at this time due to: Patient Non-verbal
Physical Exam
-
General: Well Developed, Well Nourished and No Apparent Distress
HEENT: Normocephalic, Atraumatic, Nose Appears Normal and Ears Appear Normal
Respiratory: Clear to Auscultation
Cardiac: Regular Rhythm, S1/S2 and Murmur (Systolic)
GI: Soft, Nontender, Nondistended and Normal Bowel Sounds
Genito-urinary: Turbid Urine
Musculoskeletal: Edema, Right Upper Extrem, Edema, Left Upper Extrem, Edema, Right Lower Extrem and Edema, Left Lower Extrem
Skin: Warm and Dry
Neuro: Awake
[2025-05-26 09:10] LABS: Hematocrit 22.7 % (37.0-47.0); Hemoglobin 7.4 g/dL (12.0-16.0); Mean Corp Hgb Conc. 32.6 g/dL (33.0-37.0); Mean Corpuscular Volume 104.6 fL (81.0-99.0); Platelet Count 198 10^3/uL (130-400); Red Cell Dist. Width 15.7 % (11.5-14.5)
[2025-05-26 10:57] LABS: Blood Urea Nitrogen 36 mg/dl (7-17); Calcium 8.8 mg/dl (8.4-10.2); Carbon Dioxide 33 mmol/L (22-30); Chloride 95 mmol/L (98-107); Estimated Creatinine Clearance 40 ml/min; Glucose 217 mg/dl (70-99); Magnesium 2.4 mg/dl (1.6-2.3); Potassium 4.0 mmol/L (3.5-5.1); Sodium 132 mmol/L (135-145); eGFR 32.66
[2025-05-26 11:00] VITALS: BP 125/65
[2025-05-26 11:12] LABS: Glucose - Point of Care 215 mg/dl (70-99)
[2025-05-26] MEDS: ROBITUSSIN TUBE (12:10)
--- NOTE | 2025-05-26 12:38 | W.PN.NEPH.HD ---
Assessment
-
Patient seen on dialysis
For isolated UF treatment today for 2 kg as hemodynamically tolerated
Regular dialysis will be scheduled for tomorrow
Progress Note - Hemodialysis
-
Date of Service: May 26, 2025
Duration: 2 hours
Ultrafiltration: Other (To kilogram isolated UF)
Blood Flow: 200
[2025-05-26] MEDS: SODIUM BICARBONATE 325 MG PO (12:48)
--- NOTE | 2025-05-26 13:06 | PTCARENOTE ---
Peg tube not flushing swiftly for this RN this AM, abdominal assessment unchanged from yesterday, round, slightly tender to palpation, firm in some spots. No visible block in tubing, cm marking unchanged. MD and resident made aware, sodium bicarb
ordered and mixed with coca cola, tubing unblocked. Medication/tube feeding to be resumed as scheduled, MD and resident made aware. Pt resting comfortably on HD at this time.
[2025-05-26 14:52] VITALS: BP 134/65
--- NOTE | 2025-05-26 16:59 | PTCARENOTE ---
Tube feeding set-up changed and rehung at 1600 for nocturnal feeding ([id number]).
[2025-05-26 17:10] LABS: Glucose - Point of Care 164 mg/dl (70-99)
[2025-05-26] MEDS: NOVOLOG FLEXPEN-LOW RESISTANCE 1 UNITS SC (17:10)
[2025-05-26 19:00] VITALS: BP 136/72
[2025-05-26] MEDS: STERILE WATER FOR INJECTION 10 ML IV (20:21)
[2025-05-26] MEDS: ROCEPHIN 1000 MG IV (20:22)
[2025-05-26] MEDS: FLOMAX 0.4 MG TUBE (21:55)
[2025-05-26 23:00] VITALS: BP 120/62
[2025-05-27] VITALS (8 sets, daily range): BP systolic 100–181; BP diastolic 56–86; BMI 28.8
[2025-05-27 00:05] LABS: Glucose - Point of Care 247 mg/dl (70-99)
--- NOTE | 2025-05-27 02:20 | DOWNTIME ---
There was a [employer] Downtime on 05/27/2025 from 0100 to 05/27/2025 at 0215. Downtime documentation of patient's care, including medication administrations, has been reconciled in the electronic record per guidelines. Refer to the
patient's paper chart under the miscellaneous tab to see printed paper medication records and downtime forms.
[2025-05-27 05:44] LABS: Glucose - Point of Care 239 mg/dl (70-99)
[2025-05-27] MEDS: SYNTHROID 100 MCG TUBE (05:46)
[2025-05-27] MEDS: NOVOLOG FLEXPEN-LOW RESISTANCE 2 UNITS SC ×2 (05:46→12:17)
[2025-05-27] MEDS: ROBITUSSIN 200 MG TUBE ×4 (07:19→21:35)
[2025-05-27] MEDS: DUONEB 3 ML INH ×2 (07:19→19:27)
[2025-05-27] MEDS: CRESTOR 10 MG TUBE (07:19)
[2025-05-27] MEDS: PULMICORT 0.5 MG INH ×2 (07:19→19:27)
[2025-05-27] MEDS: HEPARIN 5000 UNITS SC ×2 (07:20→23:38)
[2025-05-27] MEDS: LANTUS 0.06 UNITS SC (07:21)
[2025-05-27] MEDS: DESENEX/MITRAZOL/ZEASORB 1 APPLIC TOPICAL ×2 (07:21→21:31)
--- NOTE | 2025-05-27 08:12 | W.PN.HOSP.TC ---
Addendum entered and electronically signed by Bianca Rudolph MD, Resident 05/27/25 19:37:
Correction to Today's Communciation: Patient does not have afib or a mechanical aortic valve.
Addendum entered and electronically signed by Dotty Simon MD 05/27/25 19:24:
I saw and evaluated the patient independently. I reviewed and discussed the resident�s note and agree with findings and plan as documented by Dr. Rudolph.
GENERAL: well developed, well nourished, female in no apparent distress--not responsive
HEENT: NC/AT--O2 NC in place
HEART: regular rate and rhythm, +S1, +S2, continuous holosystolic murmur with possible diastolic murmur?
LUNGS : clear to auscultation bilaterally
ABDOM: soft, nontender, nondistended, + bowel sounds
EXT: no cyanosis, clubbing, or edema
NEUROLOGIC: bedbound
: curran
Acute on Chronic Hypoxic Respiratory Failure secondary to Pulmonary Edema due to Volume Overload--wean O2 as able--was on 15L at one point, now down to 4L--received lasix but is on HD--apprec renal, got HD and ultrafiltration
Suspected urinary Tract Infection--stop rocephin--urine culture with yeast but it is NOT a clean catch-- curran replaced and urine resent--still with yeast but 50,000 colonies--curran discontinued--asked to identify yeast---consider ID consult
holosystolic heart murmur--still awaiting ECHO
ESRD on HD--Nephrology Consulted--Monitor Daily Weights
Diabetes Mellitus, Type II with neuropathy--Continue glargine--Monitor sugars and continue coverage insulin--holding gabapentin
Anemia of chronic disease--Hemoglobin 7.7 on admission 05/24/2025. Hemoglobin 7.0 on 05/25/2025--Iron 34 low, TIBC 186 low, percent saturation 18 low, ferritin 1180 high-- 10,000 units EPO given 05/25/25--transfuse 1 unit pRBC on HD today--follow
numbers
Hyperlipidemia--Continue Crestor
Hypothyroidism--Continue levothyroxine
COPD, no acute exacerbation--Per old records patient previously on Symbicort-Continue Budesonide Neb BID-Continue DuoNeb PRN
Chronic Inflammatory Demyelinating Polyneuropathy--Dysphagia s/p PEG tube--Continue Nepro dialysis nutrition at 60ml/hr--check CT scan oral only since pt seems to grimace with palpation
Anxiety / Depression--Hold buspirone due to mental status
DVT proph-- SC Heparin
Code Status-- DNR per patient's
possible d/c to SNF Sunday
Original Note:
Today's Communication/Plan
-
Permanent afib and mechanical aortic valve
- continue warfarin 3 mg and monitor INR. INR at goal 2.98 after 3.5 mg warfarin yesterday.
T2DM
- increase long-acting insulin lantus to 8 units qHS
- moderate resistance SSI
Discontinued Curran, since patient developed a UTI with 50,000 colonies of yeast.
Given the patient groaned as if she was in pain during abdominal palpation and her temperature has been increased to 99.5 �F, obtaining a abdominal/pelvis CT with p.o. contrast only.
Assessment / Plan
Assessment / Plan
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
scoliosis, tonic-clonic seizures, presenting from [facility] for hypoxemia while on 4 L. O2 was increased to 15 L. Recently hospitalized at [facility] for nausea and vomiting and poor p.o. intake. She had PEG tube placed during admission there.
Baseline she has been unresponsive much of the time and intermittently answering yes or no questions at best. No clear etiology could be found for this. Recently taken off of CPAP. History of seizures and recently taken off of Trileptal in March
without any seizures noted since then.
CM called [facility] and confirmed her baseline mental status: nonresponsive except for one-word responses, dependent on others for ADLs.
Spoke with 05/25/25. 2 months ago, she had multiple seizures and stayed at [facility]. When they didn't have much else they could do much for her and sent her to [facility] rehab. She was able speak some sentences but would slow down
after a few sentences like she was 'running out of gas'. Antiepileptics were helping so discontinued. took her to [facility] for fluid in lungs. They plan to visit her 05/26/25. They live 2.5 hours away. She was her usual active self in 03/2025.
- She was diagnosed with CIDP 5 years ago. Infusion treatments weren't helping so discontinued.
- Asked if consented to blood transfusions if needed. Informed him of risks. He gave consent for blood transfusions.
Plan
Urinary Tract Infection
UA positive for UTI x 2. Change Curran in between 2 samples
Urine culture #1: Yeast 50,000 colonies.
Urine culture #2: Yeast 50,000 colonies. Asked microbiology to perform further identification, which will take 2 days
- Continue ceftriaxone, pending urine sample culture identification and sensitivities. May consult ID
ESRD on HD
-Nephrology Consulted
-Monitor Daily Weights
�Received ultrafiltration today 05/26/2025 for volume overload with anasarca
Abdominal pain to palpation
� CT abdomen pelvis with p.o. contrast. IV contrast avoided due to elevated creatinine above baseline
5/6 holosystolic murmur best heard at LUSB
� Echo pending
Diabetes Mellitus, Type II
- On glargine 6 units at home. Increased to 8 units
- SSI moderate resistance.
Anemia of chronic disease
Hemoglobin 7.7 on admission 05/24/2025. Hemoglobin 7.0 on 05/25/2025
Iron 34 low, TIBC 186 low, percent saturation 18 low, ferritin 1180 high
- 10,000 units EPO given 05/25/25
� Consent for blood products obtained from with co-resident as witness. Working on completing consent form
Acute on Chronic Hypoxic Respiratory Insufficiency secondary to Pulmonary Edema due to Volume Overload�resolved
-Continue supplemental oxygen and wean as able. On 4 L on 05/26/2025, which is her home O2 requirement
-Patient received Lasix 40mg IV in ED
-Consulted Nephrology for volume management via dialysis
� Flu panel negative
� Blood cultures x 2; no growth to date
Diabetic Neuropathy
-Hold gabapentin
Hyperlipidemia
-Continue Crestor
Hypothyroidism
-Continue levothyroxine
COPD, no acute exacerbation
-Per old records patient previously on Symbicort
-Continue Budesonide Neb BID
-Continue DuoNeb PRN
Chronic Inflammatory Demyelinating Polyneuropathy
Dysphagia s/p PEG tube
-All meds given via PEG tube
-Reduced water flush from 40ml/hr to 25ml/hr due to volume overload
-Continue Nepro dialysis nutrition at 60ml/hr
Anxiety / Depression
-Hold buspirone due to mental status
DVT proph: SC Heparin
Code Status: DNR per patient's
- Communicated with [facility] and confirmed patient was not on hospice (a point of confusion during nursing handoff)
Anticipated Discharge: > 48 hours
Subjective/Interval History
-
Date of Service: May 27, 2025
Objective Data
-
Labs:
Laboratory Results
Microbiology Results - Entire Visit
05/24/25 12:43 Blood/Venous Blood Culture - Preliminary
No Growth in 72 hours- Final report to follow
05/24/25 12:44 Blood/Venous Blood Culture - Preliminary
No Growth in 72 hours- Final report to follow
05/26/25 04:54 Urine Urine Culture - Preliminary
Yeast
05/24/25 22:34 Nose MRSA Screen - Final
No Methicillin Resistant Staphylococcus aureus isolated.
05/24/25 13:08 Urine Urine Culture - Final
Yeast
05/24/25 12:48 Nasal Swab Influenza Types A & B (PAIGE) - Final
Negative for Influenza A & B, NAAT
Negative results must be combined with clinical observations
and patient history.
Nucleic Acid Amplification test (NAAT)performed on the
Tapp[employer] platform.
Hematology and Coagulation - Last 24 hours
05/27/25 Range/Units
07:19
WBC 8.5 (4.8-10.8) 10^3/uL
RBC 2.08 L (4.20-5.40) 10^6/uL
Hgb 7.0 L (12.0-16.0) g/dL
Hct 22.2 L (37.0-47.0) %
MCV 106.7 H (81.0-99.0) fL
MCH 33.7 H (27.0-31.0) pg
MCHC 31.5 L (33.0-37.0) g/dL
RDW 15.9 H (11.5-14.5) %
Plt Count 189 (130-400) 10^3/uL
MPV 10.2 (7.4-10.4) fL
Blood Gas and Chemistry - Last 24 hours
05/27/25 Range/Units
07:19
Sodium 131 L (135-145) mmol/L
Potassium 4.0 (3.5-5.1) mmol/L
Chloride 97 L (98-107) mmol/L
Carbon Dioxide 31 H (22-30) mmol/L
BUN 50 H (7-17) mg/dl
Creatinine 2.2 H (0.6-1.0) mg/dL
Estimated Creat Clear 33 ml/min
eGFR 25.67
Glucose 163 H (70-99) mg/dl
Calcium 9.1 (8.4-10.2) mg/dl
Magnesium 2.5 H (1.6-2.3) mg/dl
Blood Bank Tests - Last 24 hours
05/25/25 Range/Units
10:42
Blood Type A POS
Antibody Screen Negative (Negative)
Crossmatch IS Only See Detail
Miscellaneous Lab Results - Last 24 hours
05/26/25 05/26/25 05/27/25 Range/Units
17:09 23:58 05:42
POC Glucose 164 H 247 H 239 H (70-99) mg/dl
05/27/25 Range/Units
12:13
POC Glucose 219 H (70-99) mg/dl
Vital Signs:
Vital Signs
Temp Pulse Resp BP Pulse Ox
99.1 F 61 16 125/64 100
05/27/25 03:00 05/27/25 07:22 05/27/25 07:22 05/27/25 03:00 05/27/25 07:50
I&O
05/26/25 05/27/25 05/28/25
06:59 06:59 06:59
Intake Total 300 / 300 930 / 930
Output Total 200 / 200 185 / 185
Balance 100 / 100 745 / 745
Review of Systems
-
Unable to obtain full review of systems at this time due to: Patient Non-verbal
Physical Exam
-
General: Well Developed, Well Nourished, No Apparent Distress and Comfortable
HEENT: Normocephalic, Atraumatic, Nose Appears Normal and Ears Appear Normal
Respiratory: Clear to Auscultation
Cardiac: Regular Rhythm and S1/S2
GI: Soft, Nondistended, Normal Bowel Sounds and Tender
Musculoskeletal: No Clubbing, No Cyanosis and Edema, Right Upper Extrem
Skin: Warm and Dry
Neuro: Awake
Psych: Calm
[2025-05-27 08:32] LABS: Hematocrit 22.2 % (37.0-47.0); Hemoglobin 7.0 g/dL (12.0-16.0); Mean Corp Hgb Conc. 31.5 g/dL (33.0-37.0); Mean Corpuscular Volume 106.7 fL (81.0-99.0); Platelet Count 189 10^3/uL (130-400); Red Cell Dist. Width 15.9 % (11.5-14.5)
[2025-05-27 09:29] LABS: Blood Urea Nitrogen 50 mg/dl (7-17); Calcium 9.1 mg/dl (8.4-10.2); Carbon Dioxide 31 mmol/L (22-30); Chloride 97 mmol/L (98-107); Estimated Creatinine Clearance 33 ml/min; Glucose 163 mg/dl (70-99); Magnesium 2.5 mg/dl (1.6-2.3); Potassium 4.0 mmol/L (3.5-5.1); Sodium 131 mmol/L (135-145); eGFR 25.67
--- NOTE | 2025-05-27 09:58 | PTCARENOTE ---
Tube feeding disconnected per protocol, to be restarted with new tubing at 1600.
[2025-05-27 12:14] LABS: Glucose - Point of Care 219 mg/dl (70-99)
--- NOTE | 2025-05-27 12:46 | PN.CDI ---
CDI
- -
CDI:
Physician Documentation Request
Admit Date: 05/24/25 16:35
Dear Doctor Klaudia,
Progress note include a diagnosis of pulmonary edema.
Please clarify which of the following accurately represents the acuity of the pulmonary edema:
____ Acute
Acute on Chronic
Chronic
____ Other
Use of terms such as suspected, likely, concern for, or probable (associated with a specific diagnosis that is being evaluated, monitored, or treated as if it exists) are acceptable and can be coded in the inpatient setting, when documented at the
time of discharge.
Thank you,
Myra Oreilly RN, BSN
CDI Specialist
tiger text
Please use your independent medical judgment in providing your response.
--- NOTE | 2025-05-27 14:14 | CM ---
Patient seen at bedside on HD. Patient spoke with CM via phone and stated he is in the hospital himself again at [facility]. CM asked about additional supports and patient stated they do not have any additional family members or
friends. CM will continue to follow for discharge planning needs. Plan: is for patient to return back to [facility] when medically appropriate.
Plan; return to SNF
[2025-05-27] MEDS: RETACRIT 10000 UNITS IV (15:05)
--- NOTE | 2025-05-27 15:13 | W.PN.NEPH.HD ---
Assessment
-
dangelo hd
Progress Note - Hemodialysis
-
Date of Service: May 27, 2025
Duration: 2 hours
Potassium Bath: 3
Calcium Bath: 2.5
Ultrafiltration: Other (To kilogram isolated UF)
Blood Flow: 200
EPO: yes
[2025-05-27] MEDS: HEPARIN SC (15:22)
[2025-05-27] MEDS: NOVOLOG FLEXPEN-LOW RESISTANCE SC (17:06)
[2025-05-27 17:07] LABS: Glucose - Point of Care 123 mg/dl (70-99)
[2025-05-27] MEDS: OMNIPAQUE 50 ML PO (18:00)
--- NOTE | 2025-05-27 18:39 | PTCARENOTE ---
Pt going down for ABD CT this evening, tube feeding hung and primed for nightshift RN. Per radiology, 960mL of contrast to be given through the peg tube in 30 min increments x 2 hours prior to going down for CT scan. 1800 and 1830 contrast cup 1
instilled, oncoming RN to be made aware of need for administration at 1900 and 1930 as well as resumption of tube feeds upon pt's arrival back to the floor post-CT scan.
[2025-05-27] MEDS: ROCEPHIN 1000 MG IV (21:33)
[2025-05-27] MEDS: FLOMAX 0.4 MG TUBE (21:35)
[2025-05-27] MEDS: STERILE WATER FOR INJECTION 10 ML IV (21:35)
[2025-05-27 23:33] LABS: Glucose - Point of Care 182 mg/dl (70-99)
[2025-05-27] MEDS: NOVOLOG FLEXPEN-LOW RESISTANCE 1 UNITS SC (23:37)
[2025-05-28 03:08] VITALS: BP 120/60
[2025-05-28 05:35] LABS: Glucose - Point of Care 238 mg/dl (70-99)
[2025-05-28 06:00] VITALS: BMI 27.7
[2025-05-28] MEDS: NOVOLOG FLEXPEN-LOW RESISTANCE 3 UNITS SC (06:18)
[2025-05-28] MEDS: SYNTHROID 100 MCG TUBE (06:19)
[2025-05-28 07:10] VITALS: BP 139/74
[2025-05-28 07:37] LABS: Hematocrit 25.9 % (37.0-47.0); Hemoglobin 8.8 g/dL (12.0-16.0); Mean Corp Hgb Conc. 34.0 g/dL (33.0-37.0); Mean Corpuscular Volume 101.2 fL (81.0-99.0); Platelet Count 194 10^3/uL (130-400); Red Cell Dist. Width 16.1 % (11.5-14.5)
--- NOTE | 2025-05-28 07:39 | W.PN.HOSP.TC ---
Addendum entered and electronically signed by Dotty Simon MD 05/28/25 17:04:
I saw and evaluated the patient independently. I reviewed and discussed the resident�s note and agree with findings and plan as documented by Dr. Rudolph.
GENERAL: well developed, well nourished, female in no apparent distress--more responsive--said 'please'
HEENT: NC/AT--O2 NC [address]
HEART: regular rate and rhythm, +S1, +S2, continuous holosystolic murmur with possible diastolic murmur?
LUNGS : clear to auscultation bilaterally
ABDOM: soft, nontender, nondistended, + bowel sounds
EXT: no cyanosis, clubbing, or edema
NEUROLOGIC: bedbound
: curran
Acute on Chronic Hypoxic Respiratory Failure secondary to Pulmonary Edema due to Volume Overload--wean O2 as able--was on 15L at one point, now down to 4L--received lasix but is on HD--apprec renal, got HD and ultrafiltration
Suspected urinary Tract Infection--stop rocephin--urine culture with yeast but it is NOT a clean catch-- curran replaced and urine resent--still with yeast but 50,000 colonies--curran discontinued--asked to identify yeast---consider ID consult--now
urine culture growing Enterococcus 25,000 colonies-cont to hold rocephin
holosystolic heart murmur--still awaiting ECHO
ESRD on HD--Nephrology Consulted--Monitor Daily Weights
Diabetes Mellitus, Type II with neuropathy--Continue glargine--Monitor sugars and continue coverage insulin--holding gabapentin
Anemia of chronic disease--Hemoglobin 7.7 on admission 05/24/2025. Hemoglobin 7.0 on 05/25/2025--Iron 34 low, TIBC 186 low, percent saturation 18 low, ferritin 1180 high-- 10,000 units EPO given 05/25/25--transfuse 1 unit pRBC on HD with
appropriate bump to 8.8--follow numbers
Hyperlipidemia--Continue Crestor
Hypothyroidism--Continue levothyroxine
COPD, no acute exacerbation--Per old records patient previously on Symbicort-Continue Budesonide Neb BID-Continue DuoNeb PRN
Chronic Inflammatory Demyelinating Polyneuropathy--Dysphagia s/p PEG tube--Continue Nepro dialysis nutrition at 60ml/hr--CT scan showed cystitis
Anxiety / Depression--Hold buspirone due to mental status
DVT proph-- SC Heparin
Code Status-- DNR per patient's
possible d/c to SNF Sunday once urine pathogens with definitive plan
Original Note:
Today's Communication/Plan
-
Pending urine for the identification of sensitivities.
Echo: EF 60 to 65%. No significant valvular disease
Emesis x 1 today 05/28/2025. Zofran 4 mg IV every 6 hours as needed
Assessment / Plan
Assessment / Plan
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
scoliosis, tonic-clonic seizures, presenting from [facility] for hypoxemia while on 4 L. O2 was increased to 15 L. Recently hospitalized at [facility] for nausea and vomiting and poor p.o. intake. She had PEG tube placed during admission there.
Baseline she has been unresponsive much of the time and intermittently answering yes or no questions at best. No clear etiology could be found for this. Recently taken off of CPAP. History of seizures and recently taken off of Trileptal in March
without any seizures noted since then.
CM called [facility] and confirmed her baseline mental status: nonresponsive except for one-word responses, dependent on others for ADLs.
Spoke with 05/25/25. 2 months ago, she had multiple seizures and stayed at [facility]. When they didn't have much else they could do much for her and sent her to [facility] rehab. She was able speak some sentences but would slow down
after a few sentences like she was 'running out of gas'. Antiepileptics were helping so discontinued. took her to [facility] for fluid in lungs. They plan to visit her 05/26/25. They [place] 2[place] hours away. She was her usual active self in 03/2025.
- She was diagnosed with CIDP 5 years ago. Infusion treatments weren't helping so discontinued.
- Asked if consented to blood transfusions if needed. Informed him of risks. He gave consent for blood transfusions.
Plan
Urinary Tract Infection
UA positive for UTI x 2. Change Curran in between 2 samples
Urine culture #1: Yeast 50,000 colonies.
Urine culture #2: Yeast 50,000 colonies. Asked microbiology to perform further identification, which will take 2 days (expected result on 05/29/2025)
- Continue ceftriaxone, pending urine sample culture identification and sensitivities. May consult ID
ESRD on HD
-Nephrology Consulted
-Monitor Daily Weights
�Received ultrafiltration 05/26/2025 for volume overload with anasarca
Abdominal pain to palpation
CT abdomen pelvis with p.o. contrast: Acute cystitis. Moderate right and small left pleural effusions. Moderate airspace consolidations in lower lobes bilaterally, which could be bilateral lower lobe pneumonia or atelectasis. Complete collapse of
the T11 vertebral body secondary to superior and inferior endplate fractures. Sacral decubital ulcer
5/6 holosystolic murmur best heard at LUSB
� Echo 05/28/2025: EF 60 to 65%. No significant valvular disease
Diabetes Mellitus, Type II
- On glargine 6 units at home. Increased to 8 units
- SSI moderate resistance.
� DM management consulted
Anemia of chronic disease
Hemoglobin 7.7 on admission 05/24/2025. Hemoglobin 7.0 on 05/25/2025
Iron 34 low, TIBC 186 low, percent saturation 18 low, ferritin 1180 high
- 10,000 units EPO given 05/25/25, 05/27/25 with HD
� Consent for blood products obtained from with co-resident as witness. Completed blood products consent form
- 1 unit PRBC given 05/27/2025
Hyponatremia
NA 128 05/28/2025
Creatinine 1.4, decreased from 2.2 yesterday
- Correct with scheduled HD
Hypokalemia
Potassium repleted 05/28/2025
Acute on Chronic Hypoxic Respiratory Failure secondary to Pulmonary Edema due to Volume Overload�resolved
-Continue supplemental oxygen and wean as able. On 4 L on 05/26/2025, which is her home O2 requirement
-Patient received Lasix 40mg IV in ED
-Consulted Nephrology for volume management via dialysis
� Flu panel negative
� Blood cultures x 2; no growth to date
Diabetic Neuropathy
-Hold gabapentin
Hyperlipidemia
-Continue Crestor
Hypothyroidism
-Continue levothyroxine
COPD, no acute exacerbation
-Per old records patient previously on Symbicort
-Continue Budesonide Neb BID
-Continue DuoNeb PRN
Chronic Inflammatory Demyelinating Polyneuropathy
Dysphagia s/p PEG tube
-All meds given via PEG tube
-Reduced water flush from 40ml/hr to 25ml/hr due to volume overload
-Continue Nepro dialysis nutrition at 60ml/hr
Anxiety / Depression
-Hold buspirone due to mental status
DVT proph: SC Heparin
Code Status: DNR per patient's
- Communicated with [facility] and confirmed patient was not on hospice (a point of confusion during nursing handoff)
Anticipated Discharge: 24 - 48 hours
Subjective/Interval History
-
Date of Service: May 28, 2025
No acute events overnight.
Objective Data
-
Labs:
Laboratory Results
Microbiology Results - Entire Visit
05/26/25 04:54 Urine Urine Culture - Preliminary
Enterococcus species
Yeast
05/24/25 12:43 Blood/Venous Blood Culture - Preliminary
No Growth in 72 hours- Final report to follow
05/24/25 12:44 Blood/Venous Blood Culture - Preliminary
No Growth in 72 hours- Final report to follow
05/24/25 22:34 Nose MRSA Screen - Final
No Methicillin Resistant Staphylococcus aureus isolated.
05/24/25 13:08 Urine Urine Culture - Final
Yeast
05/24/25 12:48 Nasal Swab Influenza Types A & B (PAIGE) - Final
Negative for Influenza A & B, NAAT
Negative results must be combined with clinical observations
and patient history.
Nucleic Acid Amplification test (NAAT)performed on the
[employer] platform.
Hematology and Coagulation - Last 24 hours
05/28/25 Range/Units
06:34
WBC 8.4 (4.8-10.8) 10^3/uL
RBC 2.56 L (4.20-5.40) 10^6/uL
Hgb 8.8 L D (12.0-16.0) g/dL
Hct 25.9 L (37.0-47.0) %
MCV 101.2 H (81.0-99.0) fL
MCH 34.4 H (27.0-31.0) pg
MCHC 34.0 (33.0-37.0) g/dL
RDW 16.1 H (11.5-14.5) %
Plt Count 194 (130-400) 10^3/uL
MPV 10.3 (7.4-10.4) fL
Blood Gas and Chemistry - Last 24 hours
05/28/25 Range/Units
06:34
Sodium 128 L (135-145) mmol/L
Potassium 3.4 L (3.5-5.1) mmol/L
Chloride 95 L (98-107) mmol/L
Carbon Dioxide 31 H (22-30) mmol/L
BUN 23 H (7-17) mg/dl
Creatinine 1.4 H (0.6-1.0) mg/dL
Estimated Creat Clear 45 ml/min
eGFR 44.16
Glucose 208 H (70-99) mg/dl
Calcium 9.0 (8.4-10.2) mg/dl
Magnesium 2.2 (1.6-2.3) mg/dl
Blood Bank Tests - Last 24 hours
05/25/25 Range/Units
10:42
Blood Type A POS
Antibody Screen Negative (Negative)
Crossmatch IS Only See Detail
Other lab results - Last 24 hours
05/26/25 Range/Units
04:54
Urine Color Yellow
Urine Clarity Cloudy (Clear)
Urine pH 6.0 (5.0-9.0)
Ur Specific [place] 1.015 (<1.030)
Urine Ketones Negative (Negative)
Ur Occult Blood Reflex 4+ A (Negative)
Urine Nitrite (Reflex) Negative (Negative)
Urine Bilirubin 1+ A (Negative)
Urine Urobilinogen Negative (Neg - 1+)
Leukocyte Esterase Rfl 3+ A (Negative)
Urine RBC 3-6 A (0-2) /HPF
Urine WBC (Reflex) >100 A (0-5) /HPF
Ur Squamous Epith Cells 3-5 (Few) /LPF
Urine Bacteria (Reflex) Few A (Negative)
Urine Glucose Negative (Negative)
Urine Albumin (Reflex) 4+ A (Neg - Trace)
Miscellaneous Lab Results - Last 24 hours
05/27/25 05/27/25 05/27/25 Range/Units
12:13 17:06 23:32
POC Glucose 219 H 123 H 182 H (70-99) mg/dl
05/28/25 05/28/25 Range/Units
05:34 11:18
POC Glucose 238 H 185 H (70-99) mg/dl
Vital Signs:
Vital Signs
Temp Pulse Resp BP Pulse Ox
98.1 F 84 16 120/60 98
05/28/25 03:08 05/28/25 03:08 05/28/25 03:08 05/28/25 03:08 05/28/25 03:08
I&O
05/27/25 05/28/25 05/29/25
06:59 06:59 06:59
Intake Total 930 / 930 695 / 695
Output Total 185 / 185 60 / 60
Balance 745 / 745 635 / 635
Review of Systems
-
Unable to obtain full review of systems at this time due to: Patient Non-verbal
Physical Exam
-
General: Well Developed and Well Nourished
HEENT: Normocephalic and Atraumatic
Cardiac: Regular Rhythm and S1/S2
GI: Soft, Nondistended and Normal Bowel Sounds
Musculoskeletal: No Clubbing and No Cyanosis
Skin: Warm
Neuro: Awake and Alert
[2025-05-28 07:40] LABS: Blood Urea Nitrogen 23 mg/dl (7-17); Calcium 9.0 mg/dl (8.4-10.2); Carbon Dioxide 31 mmol/L (22-30); Chloride 95 mmol/L (98-107); Estimated Creatinine Clearance 45 ml/min; Glucose 208 mg/dl (70-99); Magnesium 2.2 mg/dl (1.6-2.3); Potassium 3.4 mmol/L (3.5-5.1); Sodium 128 mmol/L (135-145); eGFR 44.16
[2025-05-28] MEDS: PULMICORT 0.5 MG INH (07:50)
[2025-05-28] MEDS: KCL ELIXIR 40 MEQ TUBE (09:11)
[2025-05-28] MEDS: CRESTOR 10 MG TUBE (09:11)
[2025-05-28] MEDS: HEPARIN 5000 UNITS SC ×2 (09:12→16:21)
[2025-05-28] MEDS: DESENEX/MITRAZOL/ZEASORB 1 APPLIC TOPICAL ×2 (09:12→20:20)
[2025-05-28] MEDS: ROBITUSSIN 200 MG TUBE ×4 (09:13→21:48)
[2025-05-28] MEDS: LANTUS 0.08 UNITS SC (09:13)
[2025-05-28] MEDS: ZOFRAN 4 MG IV (10:47)
[2025-05-28 11:05] VITALS: BP 144/89
[2025-05-28 11:19] LABS: Glucose - Point of Care 185 mg/dl (70-99)
--- NOTE | 2025-05-28 12:03 | PN.DE.MGMTRT ---
Insulin Management
- -
05/28/2025 Diabetes Management Consult
Patient admitted 05/24 with hypoxia, CT - acute cystitis, R small pleural effusion, questionable bilateral LL pneumonia. PMH HTN, GERD, CIDP, non verbal, ESRD, hemodialysis, osteoporosis, scoliosis, tonic clonic seizures, COPD, diabetes,
nephropathy, hypothyroid, EDY w CPAP, anxiety, depression, obesity. Prior to admission was living @ [facility]; was receiving lantus 9 units daily with humalog SS QID. A1C 5.2%, cr 1.2, eGFR 44.16.
Patient is nonverbal, all information retrieved from chart review and patient nurse. Currently receiving TF @ 60/ml per hour. Patient received 6 units lantus and corrective insulin yesterday. Glucose results 123 to 219. Resident has increased
lantus to 8 units in AM today; will start novolog 2 units Q 6 hours with low corrective.
Discussed with nurse.
Will follow.
Diabetes History
- -
Type of Diabetes: 2 requiring insulin
Pre-Admission Diabetes Regimen
05/28/25
06:34
Creatinine 1.4 H
Lab Results
Hemoglobin A1c 5.2 % (4.0-5.6) 05/25/25 07:35
Insulin Pump Settings
IP Diabetes Regimen
05/27/25 05/27/25 05/27/25
12:13 17:06 23:32
Glucose
POC Glucose 219 H 123 H 182 H
05/28/25 05/28/25 05/28/25
05:34 06:34 11:18
Glucose 208 H
POC Glucose 238 H 185 H
Meal type: Dinner
Meal type: Lunch
Meal type: Breakfast
Amount consumed: 0
Amount consumed: 0
Amount consumed: 0
Patient Education
[2025-05-28] MEDS: NOVOLOG FLEXPEN-LOW RESISTANCE 1 UNITS SC (13:00)
[2025-05-28] MEDS: NOVOLOG FLEXPEN 2 UNITS SC ×2 (13:01→18:21)
--- NOTE | 2025-05-28 13:51 | W.PN.NEPH.PH ---
Today's Communication / Plan
-
Dialysis tomorrow
Assessment/Plan
-
55-year-old female with multiple medical comorbidities most notable for CIDP and end-stage renal disease on dialysis presents from [facility] due to hypoxia. Reportedly not on baseline O2 was noted to be hypoxic in the low 80s on 4
L nasal cannula. Per EMS improved to 100% on 15 L. She is unable to provide any history as she has baseline nonverbal status due to CIDP, reportedly is interactive with yes and no questions at baseline
Renal consultation for end-stage renal disease and a pulmonary edema. Currently she is on 6 L oxygen. She appears to be in no distress
Other history includes diabetes hypertension anemia of chronic disease COPD. She was a transfer from [facility] where she had a PEG tube placed at that admission.
Impression
ESRD Sunday at [facility]
Hypoxia history of COPD chronic nasal cannula at 4 L
Pulmonary edema
PEG tube
Right arm AV fistula
Plan.
Much improved clinically more awake indicating
Continuing dialysis Sunday
See orders
Epogen for anemia
Follow cultures= urine Enterococcus species/yeast
-
-
Date of Service: May 28, 2025
CC / HPI / ROS
-
Chief Complaint:
Altered mental status
History of Present Illness:
ESRD Sunday altered mental status
Review of Systems:
Awake at baseline
No complaints
Labs
-
Labs:
WBC 8.4 10^3/uL (4.8-10.8) 05/28/25 06:34
RBC 2.56 10^6/uL (4.20-5.40) L 05/28/25 06:34
Hgb 8.8 g/dL (12.0-16.0) L D 05/28/25 06:34
Hct 25.9 % (37.0-47.0) L 05/28/25 06:34
Plt Count 194 10^3/uL (130-400) 05/28/25 06:34
Sodium 128 mmol/L (135-145) L 05/28/25 06:34
Potassium 3.4 mmol/L (3.5-5.1) L 05/28/25 06:34
Chloride 95 mmol/L (98-107) L 05/28/25 06:34
Carbon Dioxide 31 mmol/L (22-30) H 05/28/25 06:34
BUN 23 mg/dl (7-17) H 05/28/25 06:34
Creatinine 1.4 mg/dL (0.6-1.0) H 05/28/25 06:34
eGFR 44.16 05/28/25 06:34
Glucose 208 mg/dl (70-99) H 05/28/25 06:34
Calcium 9.0 mg/dl (8.4-10.2) 05/28/25 06:34
Phosphorus 4.2 mg/dl (2.5-4.5) 05/25/25 07:35
Albumin 3.2 g/dl (3.5-5.0) L 05/24/25 12:41
Physical Exam
-
Vital Signs:
Vital Signs
Temp Pulse Resp BP Pulse Ox
98.4 F 92 16 144/89 99
05/28/25 11:05 05/28/25 11:05 05/28/25 11:05 05/28/25 11:05 05/28/25 11:05
Respiratory:: Bilateral: Coarse
Lung Excursion:: Normal
Abdomen:: Soft
Bowel Sounds:: Normal
Extremity Edema:: +1: Bilateral:
[2025-05-28 15:05] VITALS: BP 136/77
--- NOTE | 2025-05-28 15:11 | CM ---
Patient seen at bedside with physician in room on . Patient will need auth NPI is #[id number] for [facility] and NPI for Dr. De La Cruz [id number]. CM spoke with Liajerson Gaytan and she agreed to accept patient pending auth when medically
appropriate for discharge. CM will continue to follow for discharge planning needs.
PLan; return to SNF
[2025-05-28 18:13] LABS: Glucose - Point of Care 148 mg/dl (70-99)
[2025-05-28] MEDS: NOVOLOG FLEXPEN-LOW RESISTANCE SC (18:21)
[2025-05-28 19:50] VITALS: BP 103/57
[2025-05-28] MEDS: FLOMAX 0.4 MG TUBE (21:48)
[2025-05-28 23:02] VITALS: BP 111/57
[2025-05-29] VITALS (7 sets, daily range): BP systolic 103–124; BP diastolic 57–89; BMI 27.7
[2025-05-29] MEDS: HEPARIN 5000 UNITS SC ×3 (00:11→16:33)
[2025-05-29] MEDS: NOVOLOG FLEXPEN-LOW RESISTANCE 1 UNITS SC ×3 (00:13→12:26)
[2025-05-29 00:14] LABS: Glucose - Point of Care 161 mg/dl (70-99)
[2025-05-29] MEDS: NOVOLOG FLEXPEN 2 UNITS SC ×2 (00:18→06:15)
[2025-05-29] MEDS: SYNTHROID 100 MCG TUBE (05:55)
[2025-05-29 06:14] LABS: Glucose - Point of Care 181 mg/dl (70-99)
[2025-05-29 06:22] LABS: Hematocrit 26.5 % (37.0-47.0); Hemoglobin 8.7 g/dL (12.0-16.0); Mean Corp Hgb Conc. 32.8 g/dL (33.0-37.0); Mean Corpuscular Volume 101.9 fL (81.0-99.0); Platelet Count 198 10^3/uL (130-400); Red Cell Dist. Width 15.9 % (11.5-14.5)
[2025-05-29 06:49] LABS: Blood Urea Nitrogen 34 mg/dl (7-17); Calcium 9.4 mg/dl (8.4-10.2); Carbon Dioxide 32 mmol/L (22-30); Chloride 96 mmol/L (98-107); Estimated Creatinine Clearance 32 ml/min; Glucose 168 mg/dl (70-99); Magnesium 2.4 mg/dl (1.6-2.3); Potassium 4.1 mmol/L (3.5-5.1); Sodium 133 mmol/L (135-145); eGFR 28.78
--- NOTE | 2025-05-29 07:17 | PN.DE.MGMTRT ---
Insulin Management
- -
05/29/2025 Diabetes Management Follow up
Patient admitted 05/24 with hypoxia, CT - acute cystitis, R small pleural effusion, questionable bilateral LL pneumonia. PMH: HTN, GERD, CIDP, non verbal, ESRD, hemodialysis, osteoporosis, scoliosis, tonic clonic seizures, COPD, diabetes,
nephropathy, hypothyroid, EDY w CPAP, anxiety, depression, obesity.
Prior to admission was living @ [facility]; was receiving Lantus 9 units daily with Humalog SS QID. A1C 5.2%, cr 1.2, eGFR 44.16.
Patient is nonverbal, all information retrieved from chart review and Nurse.
Patient remains on TF @ 60/ml per hour. Glucose improved after starting NovoLog Q6 hrs, to range of 148 to 185, required 1 unit of corrective insulin
Will increase NovoLog from 2 units to 3 units Q 6 hours. Cont Lantus 8 units in AM and with low corrective.
Discussed with nurse. Will cont to follow.
Diabetes History
- -
Type of Diabetes: 2 requiring insulin
Pre-Admission Diabetes Regimen
05/28/25 05/29/25
06:34 05:17
Creatinine 1.4 H 2.0 H
Lab Results
Hemoglobin A1c 5.2 % (4.0-5.6) 05/25/25 07:35
Insulin Pump Settings
IP Diabetes Regimen
05/28/25 05/28/25 05/28/25
06:34 11:18 18:12
Glucose 208 H
POC Glucose 185 H 148 H
05/29/25 05/29/25 05/29/25
00:12 05:17 06:13
Glucose 168 H
POC Glucose 161 H 181 H
Patient Education
--- NOTE | 2025-05-29 07:57 | W.PN.HOSP.TC ---
Addendum entered and electronically signed by Dotty Simon MD 05/29/25 18:42:
I saw and evaluated the patient independently. I reviewed and discussed the resident�s note and agree with findings and plan as documented by Dr. Rudolph.
GENERAL: well developed, well nourished, female in no apparent distress--more responsive--said 'please'
HEENT: NC/AT--O2 NC [address]
HEART: regular rate and rhythm, +S1, +S2, continuous holosystolic murmur referred from right arm fistula
LUNGS : clear to auscultation bilaterally
ABDOM: soft, nontender, nondistended, + bowel sounds
EXT: no cyanosis, clubbing, or edema
NEUROLOGIC: bedbound
: curran d/c'd
Acute on Chronic Hypoxic Respiratory Failure secondary to Pulmonary Edema due to Volume Overload--wean O2 as able--was on 15L at one point, now down to 4L--received lasix but is on HD--apprec renal, got HD and ultrafiltration
Suspected urinary Tract Infection--stop rocephin--urine culture with Aura Glabarata but it is NOT a clean catch-- curran replaced and urine resent with same yeast and Enterococcus---curran discontinued--asked to identify yeast---possible IV vanco
post HD x3 next week--consult ID
holosystolic heart murmur--still awaiting ECHO
ESRD on HD--Nephrology Consulted--Monitor Daily Weights
Diabetes Mellitus, Type II with neuropathy--Continue glargine--Monitor sugars and continue coverage insulin--holding gabapentin
Anemia of chronic disease--Hemoglobin 7.7 on admission 05/24/2025. Hemoglobin 7.0 on 05/25/2025--Iron 34 low, TIBC 186 low, percent saturation 18 low, ferritin 1180 high-- 10,000 units EPO given 05/25/25--transfuse 1 unit pRBC on HD with
appropriate bump to 8.8--follow numbers
Hyperlipidemia--Continue Crestor
Hypothyroidism--Continue levothyroxine
COPD, no acute exacerbation--Per old records patient previously on Symbicort-Continue Budesonide Neb BID-Continue DuoNeb PRN
Chronic Inflammatory Demyelinating Polyneuropathy--Dysphagia s/p PEG tube--Continue Nepro dialysis nutrition at 60ml/hr--CT scan showed cystitis
Anxiety / Depression--Hold buspirone due to mental status
DVT proph-- SC Heparin
Code Status-- DNR per patient's
possible d/c to SNF Sunday
Original Note:
Today's Communication/Plan
-
Urine culture demonstrated Enterococcus faecalis (sensitive to ampicillin, nitrofurantoin, vancomycin) and Aura glabrata. ID consulted
Assessment / Plan
Assessment / Plan
55-year-old female past medical history of CIDP contributing to dysphagia and being nonverbal at baseline, ESRD on hemodialysis M/W/F, hypertension, COPD, type 2 diabetes, diabetic neuropathy, anxiety/depression, hypothyroidism, obstructive sleep
apnea on CPAP, osteoporosis, scoliosis, tonic-clonic seizures, presenting from [facility] for hypoxemia with O2 requirement increased from 4 L (baseline) to 15 L. She was recently hospitalized at [facility] for nausea and vomiting and poor p.o.
intake. She had PEG tube placed during admission there.
Baseline she has been unresponsive much of the time and intermittently answering yes or no questions at best. No clear etiology could be found for this. Recently taken off of CPAP. History of seizures and recently taken off of Trileptal in March
without any seizures noted since then.
CM called [facility] and confirmed her baseline mental status: nonresponsive except for one-word responses, dependent on others for ADLs.
Spoke with 05/25/25. 2 months ago, she had multiple seizures and stayed at [facility]. When they didn't have much else they could do much for her and sent her to [facility] rehab. She was able speak some sentences but would slow down
after a few sentences like she was 'running out of gas'. Antiepileptics were helping so discontinued. took her to [facility] for fluid in lungs. They plan to visit her 05/26/25. They live 2[place]5 hours away. She was her usual active self in 03/2025.
- She was diagnosed with CIDP 5 years ago. Infusion treatments weren't helping so discontinued.
Plan
Urinary Tract Infection
Suprapubic pain�CT abdomen pelvis with p.o. contrast: Acute cystitis. Moderate right and small left pleural effusions. Moderate airspace consolidations in lower lobes bilaterally, which could be bilateral lower lobe pneumonia or atelectasis.
Complete collapse of the T11 vertebral body secondary to superior and inferior endplate fractures. Sacral decubital ulcer
UA positive for UTI x 2. Change Curran in between 2 samples
Urine culture #1: Yeast 50,000 colonies.
Urine culture #2: Aura glabrata 50,000 colonies. Enterococcus faecalis 25,000 colonies (sensitive to ampicillin, nitrofurantoin, vancomycin)
Enterococcus faecalis:
� Ceftriaxone 05/25/25 to 05/27/2025 prior to bacterial identification
- Vancomycin with dialysis Sunday/Sunday/Sunday for 4 doses (8 days). First dose Sunday05/25/2025
Aura glabrata
- ID consulted
ESRD on HD
�Hemodialysis Sunday, likely
-Nephrology Consulted
-Monitor Daily Weights
�Received ultrafiltration 05/26/2025 for volume overload with anasarca
Diabetes Mellitus, Type II
A1c 5.2%
-Continue Nepro dialysis nutrition at 60ml/hr
On glargine 6 units and lispro 1 unit AC at home.
DM management consulted
�Glargine 8 units
� NovoLog 3 units every 6 hours (continuous tube feeds). low resistance.
Anemia of chronic disease
Hemoglobin 7.7 on admission 05/24/2025. Hemoglobin 7.0 on 05/25/2025
Iron 34 low, TIBC 186 low, percent saturation 18 low, ferritin 1180 high
- 10,000 units Epogen given 05/25/25, 05/27/25 with HD
� Consent for blood products obtained from with co-resident as witness. Completed blood products consent form
- 1 unit PRBC given 05/27/2025
Hyponatremia
NA 128 05/28/2025
Creatinine 1.4, decreased from 2.2 yesterday
- Correct via scheduled HD
Hypokalemia
Potassium repleted 05/28/2025
Chronic Inflammatory Demyelinating Polyneuropathy
Dysphagia s/p PEG tube
-All oral meds given via PEG tube
-Reduced water flush from 40ml/hr to 25ml/hr due to volume overload
-Continue Nepro dialysis nutrition at 60ml/hr
Acute on Chronic Hypoxic Respiratory Failure secondary to Pulmonary Edema due to Volume Overload�resolved
-Continue supplemental oxygen and wean as able. On 4 L on 05/26/2025, which is her home O2 requirement
-Patient received Lasix 40mg IV in ED
-Consulted Nephrology for volume management via dialysis
� Flu panel negative
� Blood cultures x 2; no growth to date
5/6 holosystolic murmur best heard at [facility]
� Echo 05/28/2025: EF 60 to 65%. No significant valvular disease
Murmur likely due to volume overload prior to dialysis
Diabetic Neuropathy
-Hold gabapentin
Hyperlipidemia
-Continue Crestor
Hypothyroidism
-Continue levothyroxine
COPD, no acute exacerbation
-Per old records patient previously on Symbicort
-Continue Budesonide Neb BID
-Continue DuoNeb PRN
Anxiety / Depression
-Hold buspirone due to mental status
DVT proph: SC Heparin
Code Status: DNR per patient's
- Communicated with [facility] and confirmed patient was not on hospice (a point of confusion during nursing handoff)
Anticipated Discharge: Within 24 hours
Subjective/Interval History
-
Date of Service: May 29, 2025
No acute events overnight. Patient said 'oh my gosh', and would not respond to further questions regarding if she was in pain or discomfort.
Objective Data
-
Labs:
Laboratory Results
05/29/25
05:17
WBC 8.2
Hgb 8.7 L
Hct 26.5 L
Plt Count 198
Sodium 133 L
Potassium 4.1
Chloride 96 L
Carbon Dioxide 32 H
BUN 34 H
Creatinine 2.0 H
Glucose 168 H
Calcium 9.4
Vital Signs:
Vital Signs
Temp Pulse Resp BP Pulse Ox
98.5 F 88 16 112/62 93
05/29/25 03:27 05/29/25 03:27 05/29/25 03:27 05/29/25 03:27 05/29/25 03:27
I&O
05/28/25 05/29/25 05/30/25
06:59 06:59 06:59
Intake Total 695 / 695 450 / 450
Output Total 60 / 60
Balance 635 / 635 450 / 450
Review of Systems
-
Unable to obtain full review of systems at this time due to: Patient Non-verbal
Physical Exam
-
General: Well Developed and Well Nourished
HEENT: Normocephalic, Atraumatic, Anicteric, Nose Appears Normal and Ears Appear Normal
Respiratory: Clear to Auscultation
Cardiac: Regular Rhythm and S1/S2
GI: Soft, Nondistended, Normal Bowel Sounds and Tender (Pain to palpation of abdomen, bilateral lower extremities, and right upper extremity like last few days)
Musculoskeletal: No Clubbing, No Cyanosis and Edema, Right Upper Extrem (Edema decreased from yesterday)
Skin: Warm and Dry
Neuro: Awake
Psych: Calm
[2025-05-29] MEDS: ROBITUSSIN 200 MG TUBE ×3 (08:43→22:35)
[2025-05-29] MEDS: CRESTOR 10 MG TUBE (08:43)
[2025-05-29] MEDS: DESENEX/MITRAZOL/ZEASORB 1 APPLIC TOPICAL ×2 (08:43→20:30)
[2025-05-29] MEDS: LANTUS 0.08 UNITS SC (08:43)
[2025-05-29 12:06] LABS: Glucose - Point of Care 182 mg/dl (70-99)
[2025-05-29] MEDS: NOVOLOG FLEXPEN 3 UNITS SC ×2 (12:25→18:02)
--- NOTE | 2025-05-29 12:27 | PHA.VAN.IN ---
Assessment
- Assessment
Renal Function: Patient has ESRD, on chronic Hemodialysis
Hemodialysis Schedule: MWF
Plan
- Plan
Initial / Loading Dose: 1500mg - administration pending
Maintenance Regimen: dosing by level / HD
Monitoring: consider pre-HD level for Sunday
Pharmacokinetics Vancomycin I
- -
Patient Age: 55
Patient Sex: Female
Vancomycin Day #: 1
Indication: Genito-Urinary Tract
Requesting Provider: Dr. Rudolph (resident)
Pertinent Antimicrobial Allergies:
penicillins - unknown
Height / Weight:
Height 5 ft 8 in
Actual Weight 82.645 kg
Pertinent Past Medical History: ESRD on HD MWF, COPD (home O2)
- Vital Signs / Lab Results
Temp Pulse Resp BP Pulse Ox
98.2 F 81 18 103/57 97
05/29/25 11:00 05/29/25 11:00 05/29/25 11:00 05/29/25 11:00 05/29/25 11:00
Lab Results - Hematology
05/27/25 05/28/25 05/29/25
07:19 06:34 05:17
WBC 8.5 8.4 8.2
Lab Results - Chemistry
05/27/25 05/28/25 05/29/25
07:19 06:34 05:17
BUN 50 H 23 H 34 H
Creatinine 2.2 H 1.4 H 2.0 H
Estimated Creat Clear 33 45 32
Lab Results - Urine
05/26/25
04:54
Urine Nitrite (Reflex) Negative
Leukocyte Esterase Rfl 3+ A
Urine WBC (Reflex) >100 A
Ur Squamous Epith Cells 3-5
Urine Bacteria (Reflex) Few A
Microbiology Results
05/26/25 04:54 Urine Culture - Preliminary
Urine Enterococcus faecalis
Yeast
05/24/25 12:43 Blood Culture - Preliminary
Blood/Venous No Growth in 4 days- Final report to follow
05/24/25 12:44 Blood Culture - Preliminary
Blood/Venous No Growth in 4 days- Final report to follow
05/24/25 22:34 MRSA Screen - Final
Nose No Methicillin Resistant Staphylococcus aureus isolated.
[2025-05-29] MEDS: RETACRIT 10000 UNITS IV (13:38)
--- NOTE | 2025-05-29 13:54 | W.PN.NEPH.HD ---
Assessment
-
patient seen on HD
sbp stable at current u/f
Progress Note - Hemodialysis
-
Date of Service: May 29, 2025
Duration: 30 minutes and 3 hours
Potassium Bath: 3
Calcium Bath: 2.5
Opti-Dialyzer: 160
Ultrafiltration: Other (3kg)
Blood Flow: 400
Dialysate Flow: 600
Heparin: none
EPO: 10K
[2025-05-29] MEDS: ROBITUSSIN TUBE (15:59)
[2025-05-29] MEDS: VANCOCIN 530 MG IV (16:33)
--- NOTE | 2025-05-29 17:05 | CM ---
Patient seen at bedside with physicians. Patient seen by therapy and when report documented patient will need auth from [facility]. CM attempted to call for auth and 'system was experiencing difficulties'. When documentation completed CM will need
to call for auth; [phone]. Mag from [facility] will confirm auth with CM and is willing to accept when confirmed. CM will continue to follow for discharge planning needs.
Plan; transfer to [facility] with auth.
[2025-05-29 17:23] LABS: Glucose - Point of Care 79 mg/dl (70-99)
[2025-05-29] MEDS: NOVOLOG FLEXPEN-LOW RESISTANCE SC (17:51)
[2025-05-29] MEDS: FLOMAX 0.4 MG TUBE (22:35)
[2025-05-30 00:24] LABS: Glucose - Point of Care 183 mg/dl (70-99)
[2025-05-30] MEDS: HEPARIN 5000 UNITS SC ×3 (00:46→17:08)
[2025-05-30] MEDS: NOVOLOG FLEXPEN-LOW RESISTANCE SC ×6 (00:48→18:21)
[2025-05-30] MEDS: NOVOLOG FLEXPEN 3 UNITS SC ×4 (00:59→18:22)
[2025-05-30 03:24] VITALS: BP 135/76
[2025-05-30 05:43] VITALS: BMI 27.1
[2025-05-30 06:41] LABS: Glucose - Point of Care 241 mg/dl (70-99)
[2025-05-30] MEDS: SYNTHROID TUBE (06:46)
[2025-05-30 07:00] VITALS: BP 128/63
[2025-05-30 07:27] LABS: Hematocrit 28.0 % (37.0-47.0); Hemoglobin 9.2 g/dL (12.0-16.0); Mean Corp Hgb Conc. 32.9 g/dL (33.0-37.0); Mean Corpuscular Volume 103.3 fL (81.0-99.0); Platelet Count 184 10^3/uL (130-400); Red Cell Dist. Width 15.4 % (11.5-14.5)
[2025-05-30 08:07] LABS: Blood Urea Nitrogen 20 mg/dl (7-17); Calcium 9.4 mg/dl (8.4-10.2); Carbon Dioxide 30 mmol/L (22-30); Chloride 97 mmol/L (98-107); Estimated Creatinine Clearance 45 ml/min; Glucose 235 mg/dl (70-99); Magnesium 2.1 mg/dl (1.6-2.3); Potassium 3.4 mmol/L (3.5-5.1); Sodium 130 mmol/L (135-145); eGFR 44.16
[2025-05-30 08:09] LABS: Glucose - Point of Care 271 mg/dl (70-99)
--- NOTE | 2025-05-30 08:34 | PHA.VAN.FU ---
Vancomycin Assessment / Plan
- Assessment
Hemodialysis Schedule: MWF
WBC's are: WNL
In the past 24 hrs, patient has been: Afebrile
- Dosing Plan
Dosing by Level: Hold off on dosing today (dosing by level/ HD)
- Monitoring Plan
No level(s) ordered at this time: consider pre-HD level for Sunday
- Follow Up
Pharmacy will continue to follow.
Vancomycin Follow UP
- -
Patient Age: 55
Patient Sex: Female
Vancomycin Day #: 2
Indication: Genito-Urinary Tract
Requesting Provider: Dr. Rudolph (resident)
Pertinent Antimicrobial Allergies:
penicillins - unknown
Height / Weight:
Height 5 ft 8 in
Actual Weight 80.966 kg
Pertinent Past Medical History: ESRD on HD MWF, COPD (home O2)
- Vital Signs / Lab Results
Temp Pulse Resp BP Pulse Ox
97.6 F 82 17 135/76 98
05/30/25 03:24 05/30/25 03:24 05/30/25 03:24 05/30/25 03:24 05/30/25 03:24
Lab Results - Hematology
05/28/25 05/29/25 05/30/25
06:34 05:17 06:44
WBC 8.4 8.2 7.7
Lab Results - Chemistry
05/27/25 05/28/25 05/29/25
07:19 06:34 05:17
BUN 50 H 23 H 34 H
Creatinine 2.2 H 1.4 H 2.0 H
Estimated Creat Clear 33 45 32
05/30/25
06:44
BUN 20 H
Creatinine 1.4 H
Estimated Creat Clear 45
Microbiology Results
05/24/25 12:43 Blood Culture - Final
Blood/Venous No Growth - Final Report
05/24/25 12:44 Blood Culture - Final
Blood/Venous No Growth - Final Report
05/26/25 04:54 Urine Culture - Final
Urine Enterococcus faecalis
Aura glabrata (Terri leal)
[2025-05-30] MEDS: ROBITUSSIN 200 MG TUBE ×4 (09:30→22:46)
[2025-05-30] MEDS: LANTUS 0.08 UNITS SC (09:30)
[2025-05-30] MEDS: CRESTOR 10 MG TUBE (09:30)
[2025-05-30] MEDS: DESENEX/MITRAZOL/ZEASORB 1 APPLIC TOPICAL ×2 (09:41→20:46)
--- NOTE | 2025-05-30 09:44 | W.PN.NEPH.PH ---
Today's Communication / Plan
-
HD Sunday
Assessment/Plan
-
55-year-old female with multiple medical comorbidities most notable for CIDP and end-stage renal disease on dialysis presents from [facility] due to hypoxia. Reportedly not on baseline O2 was noted to be hypoxic in the low 80s on 4
L nasal cannula. Per EMS improved to 100% on 15 L. She is unable to provide any history as she has baseline nonverbal status due to CIDP, reportedly is interactive with yes and no questions at baseline
Renal consultation for end-stage renal disease and a pulmonary edema. Currently she is on 6 L oxygen. She appears to be in no distress
Other history includes diabetes hypertension anemia of chronic disease COPD. She was a transfer from [facility] where she had a PEG tube placed at that admission.
Impression
ESRD Sunday at [facility]
Hypoxia history of COPD chronic nasal cannula at 4 L
Pulmonary edema
PEG tube
Right arm AV fistula
Plan.
Much improved clinically more awake indicating
Continuing dialysis Sunday
HD Sunday
Epogen for anemia
Follow cultures= urine Enterococcus species/yeast
-
-
Date of Service: May 30, 2025
CC / HPI / ROS
-
Chief Complaint:
Altered mental status
History of Present Illness:
ESRD Sunday altered mental status
hemodynamically stable
Review of Systems:
Awake at baseline
No complaints
Labs
-
Labs:
WBC 7.7 10^3/uL (4.8-10.8) 05/30/25 06:44
RBC 2.71 10^6/uL (4.20-5.40) L 05/30/25 06:44
Hgb 9.2 g/dL (12.0-16.0) L 05/30/25 06:44
Hct 28.0 % (37.0-47.0) L 05/30/25 06:44
Plt Count 184 10^3/uL (130-400) 05/30/25 06:44
Sodium 130 mmol/L (135-145) L 05/30/25 06:44
Potassium 3.4 mmol/L (3.5-5.1) L 05/30/25 06:44
Chloride 97 mmol/L (98-107) L 05/30/25 06:44
Carbon Dioxide 30 mmol/L (22-30) 05/30/25 06:44
BUN 20 mg/dl (7-17) H 05/30/25 06:44
Creatinine 1.4 mg/dL (0.6-1.0) H 05/30/25 06:44
eGFR 44.16 05/30/25 06:44
Glucose 235 mg/dl (70-99) H 05/30/25 06:44
Calcium 9.4 mg/dl (8.4-10.2) 05/30/25 06:44
Phosphorus 4.2 mg/dl (2.5-4.5) 05/25/25 07:35
Albumin 3.2 g/dl (3.5-5.0) L 05/24/25 12:41
Physical Exam
-
Vital Signs:
Vital Signs
Temp Pulse Resp BP Pulse Ox
98.7 F 97 16 128/63 91
05/30/25 07:00 05/30/25 07:00 05/30/25 07:00 05/30/25 07:00 05/30/25 07:00
Respiratory:: Bilateral: Coarse
Lung Excursion:: Normal
Abdomen:: Soft
Bowel Sounds:: Normal
Extremity Edema:: +1: Bilateral:
[2025-05-30 11:00] VITALS: BP 138/73
[2025-05-30 12:33] LABS: Glucose - Point of Care 241 mg/dl (70-99)
[2025-05-30] MEDS: NOVOLOG FLEXPEN-LOW RESISTANCE 3 UNITS SC (12:43)
--- NOTE | 2025-05-30 12:45 | CON.ID ---
Consultation
-
Date/Time Consultation Requested: 05/29/25 16:39
Date/Time Consultation Performed: 05/30/25 2:46
Requesting Provider: Dr Rudolph
Performing Provider: Dr King
Reason for Consultation: Aura glabrata (and Enterococcus faecalis) UTI
Chief Complaint / Past History
Chief Complaint
hypoxia
History of Present Illness
Ms Torrez is a 55 year old female with history of CIDP, ESRD on HD, COPD who presented here 05/24 for hypoxemia to the low 80s on 4L NC, EMS placed on 15L and saw improvement to 100%. She was provided first with 40 mg of IV lasix adn then 120 mg
per nephrology and planned for ultrafiltration. She does not present with a curran it was placed on 05/24 by nephrology. Patient is nonverbal and unable to provide history; history obtained by chart review.
Since arrival here she has been afebrile, bp overall stable, without leukocytosis throughout her stay, wbc 8.5 on arrival, hgb 7.4, plt 198, na currently 130, cr 1.4, lactic acid on arrival was 0.5, a1c 5.2, UA initially done with 100 wbc/hpf and
>30 squamous cells, curran was removed and replaced and a repeat UA again showed >100 wbc and 3-[address] a/p with oral contrast only: acute cystitis with moderate urinary bladder wall thickening and mild edema. CT head with IV contrast:
no acute abnormality. Today she makes some one word statements, asks for help but no other statements.
Past History
Additional Past Medical History:
ESRD on HD
Diabetes Mellitus, Type II
Diabetic Neuropathy
Essential Hypertension
Hyperlipidemia
Hypothyroidism
COPD
Chronic Inflammatory Demyelinating Polyneuropathy
Dysphagia s/p PEG tube
GERD
Anxiety / Depression
Obesity
Obstructive Sleep Apnea
Additional Past Surgical History:
Right Upper Extremity AV Fistula
Right Lumpectomy
Allergy History:
Latex, Natural Rubber Allergy (Unknown, Verified 05/24/25 12:51)
Unknown
cortisone Allergy (Verified 05/24/25 12:51)
Unknown
peach Allergy (Verified 05/24/25 12:51)
Unknown
Penicillins Allergy (Verified 05/24/25 12:51)
Unknown
pregabalin (From Lyrica) Allergy (Verified 05/24/25 12:51)
Unknown
sunflower seed Allergy (Verified 05/24/25 12:51)
Unknown
Medications Reviewed: Yes
Social History
Tobacco: Former Smoker
Living: Custodial
Review of Systems
Review of Systems
unable to obtain due to the condition of the patient
Vital Signs
Temp Pulse Resp BP Pulse Ox
98.7 F 97 16 128/63 95
05/30/25 07:00 05/30/25 07:00 05/30/25 07:00 05/30/25 07:00 05/30/25 10:44
Physical Exam
Physical Exam
Constitutional: No Acute Distress
Cardiovascular: Regular Rate and S1/S2; Negative Murmur or Rub
Pulmonary: Clear and Symmetric; Negative Wheezes, Rales or Rhonchi
Gastrointestinal: Soft, Non Tender, Non Distended and Normal Bowel Sounds
Genito-Urinary: Negative Suprapubic Tenderness
Skin: Warm and Dry; Negative Rash or Jaundice
Lab / Diagnostic Study Results
05/30/25 06:44
05/30/25 06:44
Abs Immat Gran (auto) 0.0 10^3/uL (0-0.05) 05/24/25 12:41
Absolute Neuts (auto) 6.8 10^3/uL (1.4-6.5) H 05/24/25 12:41
Absolute Lymphs (auto) 0.7 10^3/uL (1.2-3.4) L 05/24/25 12:41
Absolute Monos (auto) 0.7 10^3/uL (0.1-0.6) H 05/24/25 12:41
Absolute Basos (auto) 0.0 10^3/uL (0-0.2) 05/24/25 12:41
Immature Gran % 0.4 % (0-0.5) 05/24/25 12:41
Neutrophils % 80.5 % (42.2-75.2) H 05/24/25 12:41
Lymphocytes % 8.6 % (20.5-51.1) L 05/24/25 12:41
Monocytes % 8.4 % (1.7-9.3) 05/24/25 12:41
Eosinophils % 1.6 % (0-6) 05/24/25 12:41
Basophils % 0.5 % (0-2) 05/24/25 12:41
Lactic Acid Cancelled 05/24/25 16:45
Ur Squamous Epith Cells 3-5 /LPF (Few) 05/26/25 04:54
Microbiology Results
Micro:
05/24/25 12:43 Blood Culture - Final
Blood/Venous No Growth - Final Report
05/24/25 12:44 Blood Culture - Final
Blood/Venous No Growth - Final Report
05/26/25 04:54 Urine Culture - Final
Urine Enterococcus faecalis
Aura glabrata (T. glab)
05/24/25 22:34 MRSA Screen - Final
Nose No Methicillin Resistant Staphylococcus aureus isolated.
05/24/25 13:08 Urine Culture - Final
Urine Yeast
05/24/25 12:48 Influenza Types A & B (PAIGE) - Final
Nasal Swab Negative for Influenza A & B, NAAT
Negative results must be combined with clinical observations
and patient history.
Nucleic Acid Amplification test (NAAT)performed on the
[employer] platform.
Assessment / Plan
Asymptomatic bacturia
- low colony counts of C glabrata and enterococcus are not consistent with a urinary tract infection, no treatment is recommended for the yeast or enterococcus
- little more to add from ID perspective, will see again at your request
--- NOTE | 2025-05-30 14:51 | W.PN.HOSP.TC ---
Addendum entered and electronically signed by Dotty Simon MD 05/30/25 18:30:
I saw and evaluated the patient independently. I reviewed and discussed the resident�s note and agree with findings and plan as documented by Dr. Morales.
GENERAL: well developed, well nourished, female in no apparent distress--more responsive--actually speaking more
HEENT: NC/AT--O2 NC [address]
HEART: regular rate and rhythm, +S1, +S2, continuous holosystolic murmur likely referred from right arm fistula
LUNGS : clear to auscultation bilaterally
ABDOM: soft, nontender, nondistended, + bowel sounds
EXT: no cyanosis, clubbing, or edema--right arm thrill, bruit
NEUROLOGIC: bedbound
: curran d/c'd
Acute on Chronic Hypoxic Respiratory Failure secondary to Pulmonary Edema due to Volume Overload--O2 off--was on 15L at one point---received lasix but is on HD--apprec renal, got HD and ultrafiltration
Suspected urinary Tract Infection--stop rocephin--urine culture with Aura Glabarata but it is NOT a clean catch-- curran replaced and urine resent with same yeast and Enterococcus---curran discontinued--apprec ID--no need for further treatment
holosystolic heart murmur--ECHO essentially normal
ESRD on HD--Nephrology Consulted--Monitor Daily Weights
Diabetes Mellitus, Type II with neuropathy--Continue glargine--Monitor sugars and continue coverage insulin--holding gabapentin
Anemia of chronic disease--Hemoglobin 7.7 on admission 05/24/2025. Hemoglobin 7.0 on 05/25/2025--Iron 34 low, TIBC 186 low, percent saturation 18 low, ferritin 1180 high-- 10,000 units EPO given 05/25/25--s/p 1 unit pRBC on HD on 05/27 with
appropriate bump
Hyperlipidemia--Continue Crestor
Hypothyroidism--Continue levothyroxine
COPD, no acute exacerbation--Per old records patient previously on Symbicort-Continue Budesonide Neb BID-Continue DuoNeb PRN
Chronic Inflammatory Demyelinating Polyneuropathy--Dysphagia s/p PEG tube--Continue Nepro dialysis nutrition at 60ml/hr--CT scan showed cystitis
Anxiety / Depression--Hold buspirone due to mental status
DVT proph-- SC Heparin
Code Status-- DNR per patient's
medically stable for d/c back to [facility]
Original Note:
Today's Communication/Plan
-
- continue to follow up with nephrology, trend labs, check glucose in AM
Assessment / Plan
Assessment / Plan
Urinary Tract Infection due to enterococcus faecalis and aura glabrata:
Suprapubic pain�CT abdomen pelvis with p.o. contrast: Acute cystitis. Moderate right and small left pleural effusions. Moderate airspace consolidations in lower lobes bilaterally, which could be bilateral lower lobe pneumonia or atelectasis.
Complete collapse of the T11 vertebral body secondary to superior and inferior endplate fractures. Sacral decubital ulcer
UA positive for UTI x 2. Change Curran in between 2 samples
Urine culture #1: Yeast 50,000 colonies.
Urine culture #2: Aura glabrata 50,000 colonies. Enterococcus faecalis 25,000 colonies (sensitive to ampicillin, nitrofurantoin, vancomycin)
Enterococcus faecalis:
� Ceftriaxone 05/25/25 to 05/27/2025 prior to bacterial identification
- Vancomycin with dialysis Sunday/Sunday/Sunday for 4 doses (8 days). First dose Sunday05/25/2025
Aura glabrata
- ID consulted and reccomended no treat for either the Enterococcus faecalis or Aura glabrata so vancomycin discontinued
ESRD on HD
�Hemodialysis Sunday, likely
-Nephrology Consulted and advised continuing hemodialysis, next session sunday
-Monitor Daily Weights and electrolyte abnormalities
�Received ultrafiltration 05/26/2025 for volume overload with anasarca
Diabetes Mellitus, Type II
A1c 5.2%
-Continue Nepro dialysis nutrition at 60ml/hr
On glargine 6 units and lispro 1 unit AC at home.
DM management consulted
� continue Glargine 8 units
� increased NovoLog 3 units to 4 units every 6 hours (continuous tube feeds). low resistance.
- Today glucose is 235, goal 140-180, if further increase will readjust the dosages in the a.m.
Anemia of chronic disease
Hemoglobin 7.7 on admission 05/24/2025. Hemoglobin 7.0 on 05/25/2025
Iron 34 low, TIBC 186 low, percent saturation 18 low, ferritin 1180 high
- 10,000 units Epogen given 05/25/25, 05/27/25 with HD
� Consent for blood products obtained from with co-resident as witness. Completed blood products consent form
- 1 unit PRBC given 05/27/2025
Hyponatremia
NA 130 05/30/2025
Creatinine 1.4, decreased from 2.2 yesterday
- Correct via scheduled HD
Hypokalemia
Potassium repleted 05/28/2025
Chronic Inflammatory Demyelinating Polyneuropathy
Dysphagia s/p PEG tube
-All oral meds given via PEG tube
-Reduced water flush from 40ml/hr to 25ml/hr due to volume overload
-Continue Nepro dialysis nutrition at 60ml/hr
Acute on Chronic Hypoxic Respiratory Failure secondary to Pulmonary Edema due to Volume Overload�resolved
-Continue supplemental oxygen and wean as able. On 4 L on 05/26/2025, which is her home O2 requirement
-Patient received Lasix 40mg IV in ED
-Consulted Nephrology for volume management via dialysis
� Flu panel negative
� Blood cultures x 2; no growth to date
5/6 holosystolic murmur best heard at [facility]
� Echo 05/28/2025: EF 60 to 65%. No significant valvular disease
Murmur likely due to volume overload prior to dialysis
Diabetic Neuropathy
-Hold gabapentin
Hyperlipidemia
-Continue Crestor
Hypothyroidism
-Continue levothyroxine
COPD, no acute exacerbation
-Per old records patient previously on Symbicort
-Continue Budesonide Neb BID
-Continue DuoNeb PRN
Anxiety / Depression
-Hold buspirone due to mental status
DVT proph: SC Heparin
Code Status: DNR per patient's
- Communicated with [facility] and confirmed patient was not on hospice (a point of confusion during nursing handoff)
Anticipated Discharge: 24 - 48 hours
Subjective/Interval History
-
Date of Service: May 30, 2025
no overnight events
No acute medical complaints. Patient speech is markedly reduced but improved from she first presented.
Objective Data
-
Labs:
Laboratory Results
05/30/25
06:44
WBC 7.7
Hgb 9.2 L
Hct 28.0 L
Plt Count 184
Sodium 130 L
Potassium 3.4 L
Chloride 97 L
Carbon Dioxide 30
BUN 20 H
Creatinine 1.4 H
Glucose 235 H
Calcium 9.4
Vital Signs:
Vital Signs
Temp Pulse Resp BP Pulse Ox
99.7 F 88 18 138/73 93
05/30/25 11:00 05/30/25 11:00 05/30/25 11:00 05/30/25 11:00 05/30/25 11:00
I&O
05/29/25 05/30/25 05/31/25
06:59 06:59 06:59
Intake Total 450 / 450
Balance 450 / 450
Review of Systems
-
Unable to obtain full review of systems at this time due to: Patient Non-verbal
Physical Exam
-
General: Well Developed and Well Nourished
HEENT: Normocephalic, Atraumatic, Anicteric, Nose Appears Normal and Ears Appear Normal
Respiratory: Clear to Auscultation
Cardiac: Regular Rhythm, S1/S2 and Other (Holosystolic murmur heard at the right upper sternal border radiating from AV fistula use for dialysis on right upper arm)
GI: Soft, Nondistended, Normal Bowel Sounds and Tender (Pain to palpation of abdomen, bilateral lower extremities, and right upper extremity like last few days)
Musculoskeletal: No Clubbing, No Cyanosis and Edema, Right Upper Extrem (Edema decreased from yesterday)
Skin: Warm and Dry
Neuro: Awake
Psych: Calm
Data Reviewed
-
Labs: Labs Reviewed by me and Discussed with Physician
[2025-05-30 15:00] VITALS: BP 145/80
--- NOTE | 2025-05-30 16:02 | CM ---
CM following re: discharge planning.
Reviewed pt's chart, met with pt.
According to pt is medically stable to be discharged back to [facility] tomorrow.
Per CM note, an attempt for an authorization was made on Sunday and due to some difficulties was not done. per CM note, [facility] requested an auth.
CM called [employer] provided phone number [phone] and a voice message stated that the office is closed.
CM will make an attempt to obtain an authorization during work days hours -.
D/C plan: [facility]. Will initiate an auth on Sunday
[2025-05-30 18:08] LABS: Glucose - Point of Care 147 mg/dl (70-99)
[2025-05-30] MEDS: TYLENOL 650 MG TUBE (18:23)
[2025-05-30 19:20] VITALS: BP 121/65
[2025-05-30] MEDS: FLOMAX 0.4 MG TUBE (22:46)
[2025-05-30 23:06] VITALS: BP 129/68
[2025-05-30 23:58] LABS: Glucose - Point of Care 189 mg/dl (70-99)
[2025-05-31] MEDS: NOVOLOG FLEXPEN-LOW RESISTANCE 1 UNITS SC ×2 (00:47→12:10)
[2025-05-31] MEDS: NOVOLOG FLEXPEN 4 UNITS SC ×5 (00:47→23:36)
[2025-05-31] MEDS: HEPARIN 5000 UNITS SC ×4 (00:48→23:33)
[2025-05-31 03:25] VITALS: BP 124/63
[2025-05-31 06:00] VITALS: BMI 27.3
[2025-05-31 06:04] LABS: Glucose - Point of Care 238 mg/dl (70-99)
[2025-05-31] MEDS: NOVOLOG FLEXPEN-LOW RESISTANCE 3 UNITS SC (06:26)
[2025-05-31 07:51] VITALS: BP 139/76
[2025-05-31] MEDS: ROBITUSSIN 200 MG TUBE ×4 (08:02→22:22)
[2025-05-31] MEDS: CRESTOR 10 MG TUBE (08:02)
[2025-05-31] MEDS: SYNTHROID 100 MCG TUBE (08:02)
[2025-05-31] MEDS: DESENEX/MITRAZOL/ZEASORB 1 APPLIC TOPICAL ×2 (08:03→20:03)
[2025-05-31] MEDS: LANTUS 0.08 UNITS SC (08:03)
[2025-05-31 10:40] LABS: Hematocrit 28.3 % (37.0-47.0); Hemoglobin 9.2 g/dL (12.0-16.0); Mean Corp Hgb Conc. 32.5 g/dL (33.0-37.0); Mean Corpuscular Volume 101.1 fL (81.0-99.0); Platelet Count 205 10^3/uL (130-400); Red Cell Dist. Width 15.4 % (11.5-14.5)
[2025-05-31 11:08] LABS: Blood Urea Nitrogen 36 mg/dl (7-17); Calcium 10.0 mg/dl (8.4-10.2); Carbon Dioxide 32 mmol/L (22-30); Chloride 98 mmol/L (98-107); Estimated Creatinine Clearance 29 ml/min; Glucose 149 mg/dl (70-99); Magnesium 2.4 mg/dl (1.6-2.3); Potassium 3.5 mmol/L (3.5-5.1); Sodium 131 mmol/L (135-145); eGFR 25.67
--- NOTE | 2025-05-31 11:20 | W.PN.NEPH.PH ---
Today's Communication / Plan
-
Dialysis tomorrow
Assessment/Plan
-
55-year-old female with multiple medical comorbidities most notable for CIDP and end-stage renal disease on dialysis presents from [facility] due to hypoxia. Reportedly not on baseline O2 was noted to be hypoxic in the low 80s on 4
L nasal cannula. Per EMS improved to 100% on 15 L. She is unable to provide any history as she has baseline nonverbal status due to CIDP, reportedly is interactive with yes and no questions at baseline
Renal consultation for end-stage renal disease and a pulmonary edema. Currently she is on 6 L oxygen. She appears to be in no distress
Other history includes diabetes hypertension anemia of chronic disease COPD. She was a transfer from [facility] where she had a PEG tube placed at that admission.
Impression
ESRD Sunday at [facility]
Hypoxia history of COPD chronic nasal cannula at 4 L
Pulmonary edema
PEG tube
Right arm AV fistula
Plan.
Weights down 8 kg since patient admitted with hypervolemia and hypoxia
Much improved clinically more awake
Continuing dialysis Sunday
HD Sunday
Epogen for anemia
Follow cultures= urine Enterococcus species/yeast: No indication for antibiotic therapy per ID
-
-
Date of Service: May 31, 2025
CC / HPI / ROS
-
Chief Complaint:
Altered mental status
History of Present Illness:
ESRD Sunday altered mental status improving
hemodynamically stable
Off antibiotics
Review of Systems:
No fevers
Awake at baseline
No complaints
Labs
-
Labs:
WBC 7.3 10^3/uL (4.8-10.8) 05/31/25 09:24
RBC 2.80 10^6/uL (4.20-5.40) L 05/31/25 09:24
Hgb 9.2 g/dL (12.0-16.0) L 05/31/25 09:24
Hct 28.3 % (37.0-47.0) L 05/31/25 09:24
Plt Count 205 10^3/uL (130-400) 05/31/25 09:24
Sodium 131 mmol/L (135-145) L 05/31/25 09:24
Potassium 3.5 mmol/L (3.5-5.1) 05/31/25 09:24
Chloride 98 mmol/L (98-107) 05/31/25 09:24
Carbon Dioxide 32 mmol/L (22-30) H 05/31/25 09:24
BUN 36 mg/dl (7-17) H 05/31/25 09:24
Creatinine 2.2 mg/dL (0.6-1.0) H 05/31/25 09:24
eGFR 25.67 05/31/25 09:24
Glucose 149 mg/dl (70-99) H 05/31/25 09:24
Calcium 10.0 mg/dl (8.4-10.2) 05/31/25 09:24
Phosphorus 4.2 mg/dl (2.5-4.5) 05/25/25 07:35
Albumin 3.2 g/dl (3.5-5.0) L 05/24/25 12:41
Physical Exam
-
Vital Signs:
Vital Signs
Temp Pulse Resp BP Pulse Ox
98.0 F 88 16 139/76 94
05/31/25 07:51 05/31/25 07:51 05/31/25 07:51 05/31/25 07:51 05/31/25 07:51
Respiratory:: Bilateral: Coarse
Lung Excursion:: Normal
Abdomen:: Soft
Bowel Sounds:: Normal
Extremity Edema:: +1: Bilateral:
[2025-05-31 12:00] LABS: Glucose - Point of Care 165 mg/dl (70-99)
--- NOTE | 2025-05-31 12:59 | W.PN.HOSP.TC ---
Addendum entered and electronically signed by Dotty Simon MD 05/31/25 13:48:
I saw and evaluated the patient independently. I reviewed and discussed the resident�s note and agree with findings and plan as documented by Dr. Morales.
GENERAL: well developed, well nourished, female in no apparent distress--more responsive--actually speaking more
HEENT: NC/AT--O2 NC in place
HEART: regular rate and rhythm, +S1, +S2, continuous holosystolic murmur likely referred from right arm fistula
LUNGS : clear to auscultation bilaterally
ABDOM: soft, nontender, nondistended, + bowel sounds
EXT: no cyanosis, clubbing, or edema--right arm thrill, bruit
NEUROLOGIC: bedbound
: curran d/c'd
Acute on Chronic Hypoxic Respiratory Failure secondary to Pulmonary Edema due to Volume Overload--O2 off--was on 15L at one point---received lasix but is on HD--apprec renal, volume managed by HD and ultrafiltration
Suspected urinary Tract Infection--ruled out, more likely colonization with Aura glabrata and Enterococcus--stop rocephin--urine culture with Aura Glabrata but was NOT a clean catch-- curran replaced and urine resent with same yeast and
Enterococcus---curran now discontinued--apprec ID--no need for further treatment
holosystolic heart murmur--ECHO essentially normal so sound likely referred from right arm fistula
ESRD on HD--apprec renal--Monitor Daily Weights
Diabetes Mellitus, Type II with neuropathy--Continue glargine--Monitor sugars and continue coverage insulin--holding gabapentin (mental status seems improved too, would hold off on restarting)
Anemia of chronic disease--Hemoglobin 7.7 on admission 05/24/2025-- Hemoglobin 7.0 on 05/25/2025--Iron 34 low, TIBC 186 low, percent saturation 18 low, ferritin 1180 high-- 10,000 units EPO given 05/25/25--s/p 1 unit pRBC on HD on 05/27 with
appropriate bump
Hyperlipidemia--Continue Crestor
Hypothyroidism--Continue levothyroxine
COPD, no acute exacerbation--Per old records patient previously on Symbicort-Continue Budesonide Neb BID--Continue DuoNeb PRN
Chronic Inflammatory Demyelinating Polyneuropathy with Dysphagia s/p PEG tube--Continue Nepro tube feeds at 60ml/hr
Anxiety/Depression--Hold buspirone due to mental status
DVT proph-- SC Heparin
Code Status-- DNR per patient's
medically stable for d/c back to SNF
Original Note:
Today's Communication/Plan
-
- patient medically stable for discharge
Assessment / Plan
Assessment / Plan
Urinary Tract Infection due to enterococcus faecalis and aura glabrata:
Suprapubic pain�CT abdomen pelvis with p.o. contrast: Acute cystitis. Moderate right and small left pleural effusions. Moderate airspace consolidations in lower lobes bilaterally, which could be bilateral lower lobe pneumonia or atelectasis.
Complete collapse of the T11 vertebral body secondary to superior and inferior endplate fractures. Sacral decubital ulcer
UA positive for UTI x 2. Change Curran in between 2 samples
Urine culture #1: Yeast 50,000 colonies.
Urine culture #2: Aura glabrata 50,000 colonies. Enterococcus faecalis 25,000 colonies (sensitive to ampicillin, nitrofurantoin, vancomycin)
Enterococcus faecalis:
� Ceftriaxone 05/25/25 to 05/27/2025 prior to bacterial identification
- Vancomycin with dialysis Sunday/Sunday/Sunday for 4 doses (8 days). First dose Sunday05/25/2025
Aura glabrata
- Curran dc'd
- urine culture was not a clean catch
- ID consulted and recommended no treat for either the Enterococcus faecalis or Aura glabrata so vancomycin discontinued
ESRD on HD
�Hemodialysis Sunday,
-Nephrology Consulted and advised continuing hemodialysis, next session Sunday
- weight on admission 86.3, and today 81.42 kgs
�Received ultrafiltration 05/26/2025 for volume overload with anasarca
Diabetes Mellitus, Type II
A1c 5.2%
-Continue Nepro dialysis nutrition at 60ml/hr
On glargine 6 units and lispro 1 unit AC at home.
DM management consulted
� continue Glargine 8 units
� increased NovoLog 3 units to 4 units every 6 hours (continuous tube feeds). low resistance.
- Today glucose is 149, goal 140-180, if further increase will readjust the dosages in the a.m.
Anemia of chronic disease
Hemoglobin 7.7 on admission 05/24/2025. Hemoglobin 7.0 on 05/25/2025
Iron 34 low, TIBC 186 low, percent saturation 18 low, ferritin 1180 high
- 10,000 units Epogen given 05/25/25, 05/27/25 with HD
� Consent for blood products obtained from with co-resident as witness. Completed blood products consent form
- 1 unit PRBC given 05/27/2025
Hyponatremia
NA 131 05/31/2025
Creatinine 1.4, decreased from 2.2 yesterday
- Correct via scheduled HD
Hypokalemia
Potassium repleted 05/28/2025
Chronic Inflammatory Demyelinating Polyneuropathy
Dysphagia s/p PEG tube
-All oral meds given via PEG tube
-Reduced water flush from 40ml/hr to 25ml/hr due to volume overload
-Continue Nepro dialysis nutrition at 60ml/hr
Acute on Chronic Hypoxic Respiratory Failure secondary to Pulmonary Edema due to Volume Overload�resolved
-Continue supplemental oxygen and wean as able. On 4 L on 05/26/2025, which is her home O2 requirement
-Patient received Lasix 40mg IV in ED
-Consulted Nephrology for volume management via dialysis
� Flu panel negative
� Blood cultures x 2; no growth to date
[facility]
� Echo 05/28/2025: EF 60 to 65%. No significant valvular disease
Murmur likely due to volume overload prior to dialysis
Diabetic Neuropathy
-Hold gabapentin
Hyperlipidemia
-Continue Crestor
Hypothyroidism
-Continue levothyroxine
COPD, no acute exacerbation
-Per old records patient previously on Symbicort
-Continue Budesonide Neb BID
-Continue DuoNeb PRN
Anxiety / Depression
-Hold buspirone due to mental status
DVT proph: SC Heparin
Code Status: DNR per patient's
- Communicated with [facility] and confirmed patient was not on hospice (a point of confusion during nursing handoff)
Anticipated Discharge: Today
Subjective/Interval History
-
Date of Service: May 31, 2025
no overnight events
No acute medical complaints. Patient speech is markedly reduced but improved from she first presented.
Objective Data
-
Labs:
Laboratory Results
05/31/25
09:24
WBC 7.3
Hgb 9.2 L
Hct 28.3 L
Plt Count 205
Sodium 131 L
Potassium 3.5
Chloride 98
Carbon Dioxide 32 H
BUN 36 H
Creatinine 2.2 H
Glucose 149 H
Calcium 10.0
Vital Signs:
Vital Signs
Temp Pulse Resp BP Pulse Ox
98.0 F 88 16 139/76 94
05/31/25 07:51 05/31/25 07:51 05/31/25 07:51 05/31/25 07:51 05/31/25 07:51
I&O
05/30/25 05/31/25 06/01/25
06:59 06:59 06:59
Intake Total 720 / 720
Balance 720 / 720
Review of Systems
-
Unable to obtain full review of systems at this time due to: Patient Non-verbal
Physical Exam
-
General: Well Developed and Well Nourished
HEENT: Normocephalic, Atraumatic, Anicteric, Nose Appears Normal and Ears Appear Normal
Respiratory: Clear to Auscultation
Cardiac: Regular Rhythm, S1/S2 and Other (Holosystolic murmur heard at the right upper sternal border radiating from AV fistula use for dialysis on right upper arm)
GI: Soft, Nondistended, Normal Bowel Sounds and Tender (Pain to palpation of abdomen, bilateral lower extremities, and right upper extremity like last few days)
Musculoskeletal: No Clubbing, No Cyanosis and Edema, Right Upper Extrem (Edema decreased from yesterday)
Skin: Warm and Dry
Neuro: Awake
Psych: Calm
Data Reviewed
-
Labs: Labs Reviewed by me and Discussed with Physician
[2025-05-31 15:52] VITALS: BP 147/75
[2025-05-31 17:50] LABS: Glucose - Point of Care 92 mg/dl (70-99)
[2025-05-31] MEDS: NOVOLOG FLEXPEN-LOW RESISTANCE SC (17:50)
[2025-05-31] MEDS: FLOMAX 0.4 MG TUBE (22:22)
[2025-05-31 23:34] LABS: Glucose - Point of Care 160 mg/dl (70-99)
[2025-05-31 23:40] VITALS: BP 123/58
[2025-06-01] MEDS: NOVOLOG FLEXPEN-LOW RESISTANCE 1 UNITS SC (00:40)
[2025-06-01 05:10] LABS: Glucose - Point of Care 137 mg/dl (70-99)
[2025-06-01] MEDS: NOVOLOG FLEXPEN-LOW RESISTANCE SC ×3 (05:10→18:13)
[2025-06-01] MEDS: NOVOLOG FLEXPEN 4 UNITS SC ×3 (05:11→18:15)
[2025-06-01] MEDS: SYNTHROID 100 MCG TUBE (05:11)
[2025-06-01 05:12] VITALS: BMI 27.3
--- NOTE | 2025-06-01 07:19 | PN.DE.MGMTRT ---
Insulin Management
- -
06/01/2025 Diabetes Management Follow up
Patient admitted 05/24 with hypoxia, CT - acute cystitis, R small pleural effusion, questionable bilateral LL pneumonia. PMH: HTN, GERD, CIDP, non verbal, ESRD, hemodialysis, osteoporosis, scoliosis, tonic clonic seizures, COPD, diabetes,
nephropathy, hypothyroid, EDY w CPAP, anxiety, depression, obesity.
Prior to admission was living @ [facility]; was receiving Lantus 9 units daily with Humalog SS QID. A1C 5.2%, cr 1.2, eGFR 44.16.
Patient awake, alert, is nonverbal, unable to interview, all information retrieved from chart review and Nurse.
Tube feeds continue @ 60/ml per hour. Glucose stable 92 to 165, required 1 unit of corrective insulin
Will make no changes to current regimen NovoLog 4 units Q 6 hours, Lantus 8 units in AM and with low corrective.
Discussed with nurse. Will cont to follow.
Diabetes History
- -
Type of Diabetes: 2 requiring insulin
Pre-Admission Diabetes Regimen
05/31/25
09:24
Creatinine 2.2 H
Lab Results
Hemoglobin A1c 5.2 % (4.0-5.6) 05/25/25 07:35
Insulin Pump Settings
IP Diabetes Regimen
05/31/25 05/31/25 05/31/25
09:24 11:59 17:49
Glucose 149 H
POC Glucose 165 H 92
05/31/25 06/01/25
23:33 05:09
Glucose
POC Glucose 160 H 137 H
Patient Education
[2025-06-01 07:26] VITALS: BP 111/60
[2025-06-01 08:04] LABS: Hematocrit 27.5 % (37.0-47.0); Hemoglobin 9.2 g/dL (12.0-16.0); Mean Corp Hgb Conc. 33.5 g/dL (33.0-37.0); Mean Corpuscular Volume 101.1 fL (81.0-99.0); Nucleated Red Blood Cells % 0 %; Platelet Count 195 10^3/uL (130-400); Red Cell Dist. Width 15.4 % (11.5-14.5)
[2025-06-01 08:28] LABS: ALT (SGPT) 18 U/L (0-35); AST (SGOT) 19 U/L (14-36); Albumin 3.0 g/dl (3.5-5.0); Alkaline Phosphatase 100 U/L (38-126); Blood Urea Nitrogen 48 mg/dl (7-17); Calcium 10.1 mg/dl (8.4-10.2); Carbon Dioxide 32 mmol/L (22-30); Chloride 99 mmol/L (98-107); Estimated Creatinine Clearance 24 ml/min; Glucose 153 mg/dl (70-99); Magnesium 2.4 mg/dl (1.6-2.3); Potassium 3.6 mmol/L (3.5-5.1); Sodium 134 mmol/L (135-145); Total Protein 5.5 g/dl (6.3-8.2); eGFR 21.01
[2025-06-01] MEDS: CRESTOR 10 MG TUBE (08:44)
[2025-06-01] MEDS: ROBITUSSIN 200 MG TUBE ×4 (08:44→21:03)
[2025-06-01] MEDS: LANTUS 0.08 UNITS SC (08:44)
[2025-06-01] MEDS: DESENEX/MITRAZOL/ZEASORB 1 APPLIC TOPICAL ×2 (08:45→21:02)
[2025-06-01] MEDS: HEPARIN SC (08:45)
[2025-06-01] MEDS: RETACRIT 10000 UNITS IV (08:45)
--- NOTE | 2025-06-01 09:31 | W.PN.HOSP.TC ---
Addendum entered and electronically signed by Raymond Leary MD 06/01/25 22:26:
Attending Addendum-
I saw and evaluated the patient. I reviewed the resident�s note and agree with findings and plan as documented in the resident�s note. Sub: Patient nonverbal. appears comfortable, NAEON reported by nursing. Full 12 point ROS attempted Exam: Vitals
reviewed in chart GEN-NAd heart RRR 3/6 SM @ RUSB, lungs clear abd soft PEG in palce LE no edema Neuro follows commands intermittently aphasic
Plan:
#Acute on Chronic Hypoxic Respiratory Failure secondary to Pulmonary Edema due to Volume Overload--O2 off--was on 15L at one point--on HD--apprec renal, volume managed by HD and ultrafiltration - back to baseline
#Suspected urinary Tract Infection-ruled out, curran dc'd
# holosystolic heart murmur--ECHO essentially normal so sound likely referred from right arm fistula
# ESRD on HD--apprec renal--Monitor Daily Weights, M,W,F
# Diabetes Mellitus, Type II with neuropathy--Continue glargine--Monitor sugars and continue coverage insulin--holding gabapentin (mental status seems improved too, would hold off on restarting)
# Anemia of chronic disease--Hemoglobin 7.7 on admission 05/24/2025-- Hemoglobin 7.0 on 05/25/2025--Iron 34 low, TIBC 186 low, percent saturation 18 low, ferritin 1180 high-- 10,000 units EPO given 05/25/25--s/p 1 unit pRBC on HD on 05/27 with
appropriate bump
# Hyperlipidemia--Continue Crestor
# Hypothyroidism--Continue levothyroxine
# COPD, no acute exacerbation--Per old records patient previously on Symbicort-Continue Budesonide Neb BID--Continue DuoNeb PRN
# Chronic Inflammatory Demyelinating Polyneuropathy with Dysphagia s/p PEG tube--Continue tube feeds at 60ml/hr
# Anxiety/Depression--restart buspirone
DVT proph-- SC Heparin
Code Status-- DNR per patient's
Dispo- DC to [facility] medically stable awaiting auth d/w DC in am
Time spent coordinating care, review of plan of care with resident, personally reviewed records in EMR, med rec, consults, notes, labs, radiology, d/w nursing,CM � 51 mins
Original Note:
Today's Communication/Plan
-
Pending availability at a SNF for discharge. Taper [facility] SNF. Case management stated full authorization is required.
Assessment / Plan
Assessment / Plan
Impression
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
on CPAP, osteoporosis, scoliosis, tonic-clonic seizures, presenting from [facility] for hypoxemia with O2 requirement increased from 4 L (baseline) to 15 L.
She was recently hospitalized at [facility] for nausea and vomiting and poor p.o. intake. She had PEG tube placed during admission there.
Baseline she has been unresponsive much of the time and intermittently answering yes or no questions at best. No clear etiology could be found for this. History of seizures and recently taken off of Trileptal in March without any seizures noted
since then. called [facility] and confirmed her baseline mental status: nonresponsive except for one-word responses, dependent on others for ADLs.
Spoke with 05/25/25. 2 months ago, she had multiple seizures and stayed at [facility]. When they didn't have much else they could do much for her and sent her to [facility] rehab. She was able speak some sentences but would slow down
after a few sentences like she was 'running out of gas'. Antiepileptics were helping so discontinued. took her to [facility] for fluid in lungs. They plan to visit her 05/26/25. They live 2.5 hours away. She was her usual active self in 03/2025.
- She was diagnosed with CIDP 5 years ago. Infusion treatments weren't helping so discontinued.
Plan
Urinary Tract Infection due to enterococcus faecalis and aura glabrata:
Suprapubic pain�CT abdomen pelvis with p.o. contrast: Acute cystitis. Moderate right and small left pleural effusions. Moderate airspace consolidations in lower lobes bilaterally, which could be bilateral lower lobe pneumonia or atelectasis.
Complete collapse of the T11 vertebral body secondary to superior and inferior endplate fractures. Sacral decubital ulcer
UA positive for UTI x 2. Change Curran in between 2 samples
Urine culture #1: Yeast 50,000 colonies.
Urine culture #2: Aura glabrata 50,000 colonies. Enterococcus faecalis 25,000 colonies (sensitive to ampicillin, nitrofurantoin, vancomycin)
Enterococcus faecalis:
� Ceftriaxone 05/25/25 to 05/27/2025 prior to bacterial identification
- Vancomycin with dialysis Sunday/Sunday/Sunday for 4 doses (8 days). First dose Sunday05/25/2025 and discontinued
Uara glabrata
- Curran dc'd
- urine culture was not a clean catch
ID consulted: Low colonies for both pathogen not consistent with UTI. No antibacterial treatment recommended
� Vancomycin discontinued
ESRD on HD
� Hemodialysis Sunday. Received ultrafiltration 05/26/2025 for volume overload with anasarca
- Nephrology following
- weight on admission 86.3, down to 81.42 kgs
Diabetes Mellitus, Type II
A1c 5.2%
-Continue Nepro dialysis nutrition at 60ml/hr
On glargine 6 units and lispro 1 unit AC at home.
DM management consulted
� continue Glargine 8 units
� NovoLog 4 units every 6 hours (continuous tube feeds). low resistance.
Anemia of chronic disease
Hemoglobin 7.7 on admission 05/24/2025. Hemoglobin 7.0 on 05/25/2025
Iron 34 low, TIBC 186 low, percent saturation 18 low, ferritin 1180 high
- 10,000 units Epogen given 05/25/25, 05/27/25 with HD
� Consent for blood products obtained from with co-resident as witness. Completed blood products consent form
- 1 unit PRBC given 05/27/2025
Hyponatremia
NA 131 05/31/2025
Creatinine 1.4, decreased from 2.2 yesterday
- Correct via scheduled HD
Hypokalemia
Potassium repleted 05/28/2025
Chronic Inflammatory Demyelinating Polyneuropathy
Dysphagia s/p PEG tube
-All oral meds given via PEG tube
-Reduced water flush from 40ml/hr to 25ml/hr due to volume overload
-Continue Nepro dialysis nutrition at 60ml/hr
Acute on Chronic Hypoxic Respiratory Failure secondary to Pulmonary Edema due to Volume Overload�resolved
-Continue supplemental oxygen and wean as able. On 4 L on 05/26/2025, which is her home O2 requirement
-Patient received Lasix 40mg IV in ED
-Consulted Nephrology for volume management via dialysis
� Flu panel negative
� Blood cultures x 2; no growth to date
5/6 holosystolic murmur best heard at [facility]
� Echo 05/28/2025: EF 60 to 65%. No significant valvular disease
Murmur likely due to volume overload prior to dialysis
Diabetic Neuropathy
-Hold gabapentin
Hyperlipidemia
-Continue Crestor
Hypothyroidism
-Continue levothyroxine
COPD, no acute exacerbation
-Per old records patient previously on Symbicort
-Continue Budesonide Neb BID
-Continue DuoNeb PRN
Anxiety / Depression
-Hold buspirone due to mental status
DVT proph: SC Heparin
Code Status: DNR per patient's
- Communicated with [facility] and confirmed patient was not on hospice (a point of confusion during nursing handoff)
Anticipated Discharge: Within 24 hours
Subjective/Interval History
-
Date of Service: June 01, 2025
No acute events overnight. Patient was not responding to questions about pain or discomfort, which is her baseline.
Objective Data
-
Labs:
Laboratory Results
06/01/25
07:49
WBC 7.2
Hgb 9.2 L
Hct 27.5 L
Plt Count 195
Sodium 134 L
Potassium 3.6
Chloride 99
Carbon Dioxide 32 H
BUN 48 H
Creatinine 2.6 H
Glucose 153 H
Calcium 10.1
Total Bilirubin 0.6
AST 19
ALT 18
Alkaline Phosphatase 100
Vital Signs:
Vital Signs
Temp Pulse Resp BP Pulse Ox
97.6 F 79 16 111/60 97
06/01/25 07:26 06/01/25 07:26 06/01/25 07:26 06/01/25 07:26 06/01/25 07:26
I&O
05/31/25 06/01/25 06/02/25
06:59 06:59 06:59
Intake Total 720 / 720
Output Total 3 / 3
Balance 720 / 720 -3 / -3
Review of Systems
-
Unable to obtain full review of systems at this time due to: Patient Non-verbal
Physical Exam
-
General: Well Developed, Well Nourished, No Apparent Distress and Comfortable
HEENT: Normocephalic, Atraumatic, Anicteric, Nose Appears Normal and Ears Appear Normal
Respiratory: Clear to Auscultation
Cardiac: Regular Rhythm, S1/S2 and Murmur (Systolic murmur, thought to be referred from dialysis AV fistula)
GI: Soft, Nontender (Patient groaned on initial palpation but did not to subsequent deeper palpation), Nondistended and Normal Bowel Sounds
Musculoskeletal: No Clubbing, No Cyanosis and Edema, Right Upper Extrem
Skin: Warm and Dry
Neuro: Awake
Psych: Calm
--- NOTE | 2025-06-01 09:52 | CM ---
Addendum entered by Mikal Garza 06/01/25 13:29:
Updated PT and OT notes noted.
Pt's clinical faxed to [facility] [phone] for a review.
CM met with [facility] admission director Yoana and liajerson Gaytan and they confirmed that pt is accepted for admission to [facility] when full auth obtained. Per sap director, pt is not a LTC there and not a bed hold.
D/C plan: return back to [facility]. Awaiting for an auth.
Original Note:
CM following re: discharge planning.
According to pt has been ready for discharge.
Per CM note, [facility] accepted the pt for admission when an auth is available.
CM called [facility] [phone], spoke to industrial relations representative Pamela, a request for an auth initiated, pending . Requested pt's clinical will be faxed to [facility] after updated PT/OT notes [phone]
PT and OT are aware of requested updated PT/OT notes.
Awaiting for an authorization.
D/C plan: [facility] when an auth available.
[2025-06-01] MEDS: MANNITOL 25% 12.5 GRAMS IV (10:21)
[2025-06-01 11:58] LABS: Glucose - Point of Care 132 mg/dl (70-99)
--- NOTE | 2025-06-01 13:16 | W.PN.NEPH.HD ---
Assessment
-
Seen on HD. no new issues. VSS, access ok
Progress Note - Hemodialysis
-
Date of Service: June 01, 2025
Duration: 30 minutes and 3 hours
Potassium Bath: 3
Calcium Bath: 2.5
Opti-Dialyzer: 160
Ultrafiltration: Other (2kg)
Blood Flow: 400
Dialysate Flow: 600
Heparin: 0
EPO: 25707 units
[2025-06-01 15:19] VITALS: BP 143/81
[2025-06-01] MEDS: HEPARIN 5000 UNITS SC (16:54)
[2025-06-01 17:58] LABS: Glucose - Point of Care 145 mg/dl (70-99)
[2025-06-01] MEDS: FLOMAX 0.4 MG TUBE (21:02)
[2025-06-01 23:36] VITALS: BP 127/59
[2025-06-01 23:51] LABS: Glucose - Point of Care 197 mg/dl (70-99)
[2025-06-02] MEDS: HEPARIN 5000 UNITS SC ×2 (00:05→08:17)
[2025-06-02] MEDS: NOVOLOG FLEXPEN-LOW RESISTANCE 1 UNITS SC ×2 (00:06→12:07)
[2025-06-02] MEDS: NOVOLOG FLEXPEN 4 UNITS SC ×3 (00:06→12:07)
[2025-06-02] MEDS: VISBIOME 1 CAP PO ×2 (00:59→08:18)
[2025-06-02 06:00] VITALS: BMI 27.2
[2025-06-02 06:28] LABS: Glucose - Point of Care 207 mg/dl (70-99)
[2025-06-02] MEDS: NOVOLOG FLEXPEN-LOW RESISTANCE 3 UNITS SC (06:35)
[2025-06-02] MEDS: SYNTHROID 100 MCG TUBE (07:12)
--- NOTE | 2025-06-02 07:19 | PN.DE.MGMTRT ---
Insulin Management
- -
06/02/2025 Diabetes Management Follow up
Patient admitted 05/24 with hypoxia, CT - acute cystitis, R small pleural effusion, questionable bilateral LL pneumonia. PMH: HTN, GERD, CIDP, non verbal, ESRD, hemodialysis, osteoporosis, scoliosis, tonic clonic seizures, COPD, diabetes,
nephropathy, hypothyroid, EDY w CPAP, anxiety, depression, obesity.
Prior to admission was living @ [facility]; was receiving Lantus 9 units daily with Humalog SS QID. A1C 5.2%, cr 1.2, eGFR 44.16.
Patient awake, nonverbal, unable to interview, all information retrieved from chart review and Nurse.
Tube feeds continue @ 60/ml per hour. Glucose stable 132 to 197, required 1 unit of corrective insulin
Will make no changes to current regimen NovoLog 4 units Q 6 hours, Lantus 8 units in AM and with low corrective.
Discussed with nurse. Will cont to follow.
Diabetes History
- -
Type of Diabetes: 2 requiring insulin
Pre-Admission Diabetes Regimen
06/01/25
07:49
Creatinine 2.6 H
Lab Results
Hemoglobin A1c 5.2 % (4.0-5.6) 05/25/25 07:35
Insulin Pump Settings
IP Diabetes Regimen
06/01/25 06/01/25 06/01/25
07:49 11:57 17:56
Glucose 153 H
POC Glucose 132 H 145 H
06/01/25 06/02/25
23:50 06:26
Glucose
POC Glucose 197 H 207 H
Patient Education
[2025-06-02 07:23] LABS: Hematocrit 30.7 % (37.0-47.0); Hemoglobin 10.0 g/dL (12.0-16.0); Mean Corp Hgb Conc. 32.6 g/dL (33.0-37.0); Mean Corpuscular Volume 100.3 fL (81.0-99.0); Platelet Count 216 10^3/uL (130-400); Red Cell Dist. Width 15.5 % (11.5-14.5)
[2025-06-02 07:24] VITALS: BP 137/68
[2025-06-02 07:38] LABS: Blood Urea Nitrogen 26 mg/dl (7-17); Calcium 9.7 mg/dl (8.4-10.2); Carbon Dioxide 34 mmol/L (22-30); Chloride 96 mmol/L (98-107); Estimated Creatinine Clearance 40 ml/min; Glucose 198 mg/dl (70-99); Magnesium 2.2 mg/dl (1.6-2.3); Potassium 3.5 mmol/L (3.5-5.1); Sodium 132 mmol/L (135-145); eGFR 37.62
--- NOTE | 2025-06-02 08:06 | W.PN.HOSP.TC ---
Addendum entered and electronically signed by Raymond Leary MD 06/02/25 21:27:
Attending Addendum-
I saw and evaluated the patient. I reviewed the resident�s note and agree with findings and plan as documented in the resident�s note. Sub: Patient nonverbal. appears comfortable, per nursing having loose stools patient is dependent so FMS placed.
Full 12 point ROS attempted Exam: Vitals reviewed in chart GEN-NAD heart RRR 3/6 SM @ RUSB, lungs clear abd soft PEG in place LE no edema Neuro follows commands intermittently aphasic
Plan:
#Acute on Chronic Hypoxic Respiratory Failure secondary to Pulmonary Edema due to Volume Overload--O2 off--was on 15L at one point--on HD--apprec renal, volume managed by HD and ultrafiltration - back to baseline
# ESRD on HD--apprec renal--Monitor Daily Weights, HD in AM, - sched M,W,F
# Diarrhea- likely from TF vs abx associated, infection control advised to not check c diff, check at facility of warranted, cont FMS x 24 hours
# Diabetes Mellitus, Type II with neuropathy--Continue glargine--Monitor sugars and continue coverage insulin--DC gabapentin
# Anemia of chronic disease--s/p 1 unit pRBC on HD on 05/27, epo with HD
# Hyperlipidemia--Continue Crestor
# Hyponatremia- hypervolemia- for UF/HD in am
# functional quadriplegia- patient is 100% dependent for all adl's cont PT OT on DC
# Hypothyroidism--Continue levothyroxine
# COPD, no acute exacerbation--Per old records patient previously on Symbicort-Continue Budesonide Neb BID--Continue DuoNeb PRN
# Chronic Inflammatory Demyelinating Polyneuropathy with Dysphagia s/p PEG tube--Continue tube feeds at 60ml/hr
# Anxiety/Depression--restarted buspirone
DVT proph-- SC Heparin
Code Status-- DNR per patient's
Dispo- DC to [facility]
Time spent coordinating care, DC planning, review of DC plan of care with resident, transition of care, review of records, med rec/scripts sent electronically, consults, notes, d/w consultants, nursing, family, and CM� 31 mins >50% of this time was
devoted to counseling and coordination of care
Original Note:
Today's Communication/Plan
-
Anticipate discharge today. Patient was medically ready for discharge yesterday but was waiting for SNF full authorization.
Patient developed diarrhea yesterday. Continue fecal management system for 24 hours.
Discharging patient on modified insulin regimen with 8 units glargine nightly and 4 units Humalog every 6 hours. BuSpar and PPI will be resumed at discharge. Gabapentin and tamsulosin will not be resumed at discharge.
Assessment / Plan
Assessment / Plan
Impression
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
on CPAP, osteoporosis, scoliosis, tonic-clonic seizures, presenting from [facility] for hypoxemia with O2 requirement increased from 4 L (baseline) to 15 L.
She was recently hospitalized at [facility] for nausea and vomiting and poor p.o. intake. She had PEG tube placed during admission there.
Baseline she has been unresponsive much of the time and intermittently answering yes or no questions at best. No clear etiology could be found for this. History of seizures and recently taken off of Trileptal in March without any seizures noted
since then. CM called [facility] and confirmed her baseline mental status: nonresponsive except for one-word responses, dependent on others for ADLs.
Spoke with 05/25/25. 2 months ago, she had multiple seizures and stayed at [facility]. When they didn't have much else they could do much for her and sent her to [facility] rehab. She was able speak some sentences but would slow down
after a few sentences like she was 'running out of gas'. Antiepileptics were helping so discontinued. took her to [facility] for fluid in lungs. They plan to visit her 05/26/25. They live 2.5 hours away. She was her usual active self in 03/2025.
- She was diagnosed with CIDP 5 years ago. Infusion treatments weren't helping so discontinued.
Plan
Urinary Tract Infection due to enterococcus faecalis and aura glabrata:
Suprapubic pain�CT abdomen pelvis with p.o. contrast: Acute cystitis. Moderate right and small left pleural effusions. Moderate airspace consolidations in lower lobes bilaterally, which could be bilateral lower lobe pneumonia or atelectasis.
Complete collapse of the T11 vertebral body secondary to superior and inferior endplate fractures. Sacral decubital ulcer
UA positive for UTI x 2. Change Christianson in between 2 samples
Urine culture #1: Yeast 50,000 colonies.
Urine culture #2: Aura glabrata 50,000 colonies. Enterococcus faecalis 25,000 colonies (sensitive to ampicillin, nitrofurantoin, vancomycin)
Enterococcus faecalis:
� Ceftriaxone 05/25/25 to 05/27/2025 prior to bacterial identification
- Vancomycin with dialysis Sunday/Sunday/Sunday for 4 doses (8 days). First dose Sunday05/25/2025 and discontinued
Aura glabrata
- Christianson dc'd
- urine culture was not a clean catch
ID consulted: Low colonies for both pathogen not consistent with UTI. No antibacterial treatment recommended
� Vancomycin discontinued
ESRD on HD
� Hemodialysis Sunday. Received ultrafiltration 05/26/2025 for volume overload with anasarca
- Nephrology following
- weight on admission 86.3, down to 81.42 kgs
Diabetes Mellitus, Type II
A1c 5.2%
-Continue Nepro dialysis nutrition at 60ml/hr
-diarrhea. fecal management system. Continue for 24 hours
On glargine 6 units and lispro 1 unit AC at home.
DM management consulted
� continue Glargine 8 units
� NovoLog 4 units every 6 hours (continuous tube feeds). low resistance.
Anemia of chronic disease
Hemoglobin 7.7 on admission 05/24/2025. Hemoglobin 7.0 on 05/25/2025
Iron 34 low, TIBC 186 low, percent saturation 18 low, ferritin 1180 high
- 10,000 units Epogen given 05/25/25, 05/27/25 with HD
� Consent for blood products obtained from with co-resident as witness. Completed blood products consent form
- 1 unit PRBC given 05/27/2025
Hyponatremia
NA 131 05/31/2025
Creatinine 1.4, decreased from 2.2 yesterday
- Correct via scheduled HD
Hypokalemia
Potassium repleted 05/28/2025
Chronic Inflammatory Demyelinating Polyneuropathy
Dysphagia s/p PEG tube
-All oral meds given via PEG tube
-Reduced water flush from 40ml/hr to 25ml/hr due to volume overload
-Continue Nepro dialysis nutrition at 60ml/hr
Acute on Chronic Hypoxic Respiratory Failure secondary to Acute Pulmonary Edema due to Volume Overload�resolved
-Continue supplemental oxygen and wean as able. On 4 L on 05/26/2025, which is her home O2 requirement
-Patient received Lasix 40mg IV in ED
-Consulted Nephrology for volume management via dialysis
� Flu panel negative
� Blood cultures x 2; no growth to date
5/6 holosystolic murmur best heard at [facility]
� Echo 05/28/2025: EF 60 to 65%. No significant valvular disease
Murmur likely due to volume overload prior to dialysis
Diabetic Neuropathy
-Hold gabapentin
Hyperlipidemia
-Continue Crestor
Hypothyroidism
-Continue levothyroxine
COPD, no acute exacerbation
-Per old records patient previously on Symbicort
-Continue Budesonide Neb BID
-Continue DuoNeb PRN
Anxiety / Depression
-Restart buspirone
DVT proph: SC Heparin
Code Status: DNR per patient's
- Communicated with [facility] and confirmed patient was not on hospice (a point of confusion during nursing handoff)
Anticipated Discharge: Today
Subjective/Interval History
-
Date of Service: June 02, 2025
No acute events overnight. Patient nonverbal and was sleeping/drowsy during my exam.
Objective Data
-
Labs:
Laboratory Results
06/02/25
06:14
WBC 7.1
Hgb 10.0 L
Hct 30.7 L
Plt Count 216
Sodium 132 L
Potassium 3.5
Chloride 96 L
Carbon Dioxide 34 H
BUN 26 H
Creatinine 1.6 H
Glucose 198 H
Calcium 9.7
Vital Signs:
Vital Signs
Temp Pulse Resp BP Pulse Ox
98.5 F 94 14 137/68 98
06/02/25 07:24 06/02/25 07:24 06/02/25 07:24 06/02/25 07:24 06/02/25 07:24
I&O
06/01/25 06/02/25 06/03/25
06:59 06:59 06:59
Intake Total 180 / 180
Output Total 3 / 3
Balance -3 / -3 180 / 180
Weight - last 4 days
05/31/25 06/01/25 06/02/25 06/03/25
06:59 06:59 06:59 06:59
Actual Weight 81.42 kg 81.42 kg 81.238 kg
Review of Systems
-
Unable to obtain full review of systems at this time due to: Patient Non-verbal
Physical Exam
-
General: Well Developed and Well Nourished
HEENT: Normocephalic, Atraumatic, Anicteric, Nose Appears Normal and Ears Appear Normal
Respiratory: Clear to Auscultation
Cardiac: Regular Rhythm and S1/S2
GI: Soft, Nontender, Nondistended and Normal Bowel Sounds
Musculoskeletal: No Clubbing, No Cyanosis and No Edema
Skin: Warm and Dry
Neuro: Awake and Alert
Psych: Calm
[2025-06-02] MEDS: BUSPAR 10 MG TUBE (08:17)
[2025-06-02] MEDS: LANTUS 0.08 UNITS SC (08:17)
[2025-06-02] MEDS: CRESTOR 10 MG TUBE (08:17)
[2025-06-02] MEDS: ROBITUSSIN 200 MG TUBE ×2 (08:18→12:07)
[2025-06-02] MEDS: DESENEX/MITRAZOL/ZEASORB 1 APPLIC TOPICAL (08:18)
--- NOTE | 2025-06-02 09:16 | PN.CDI ---
CDI
- -
CDI:
Physician Documentation Request
Admit Date: 05/24/25 16:35
Dear Doctor Klaudia,
Physical therapy notes include : Bed Mobility- Dependent 'Dependent for bed mobility and to sit edge of bed for 2-3 minutes, resistant to sitting up, requires assist of two to maintain sitting balance. Basic Mobility - Total '
Occupational therapy: 'Pt is at [facility], dependent at this point. Evaluation: amount of assistance required Assist of two. ADL status: Dependent for all self care. Functional mobility: Dependent. 'Pt is dependent in all areas of self care is
unable to follow commands'
Patient had tube feeds via PEG tube.
Based on your medical judgment, can you please provide in the progress notes one or more diagnoses (if any) associated with the patients functional status:
Functional quadriplegia
Generalized weakness , without complete immobility
Other - please specify
Use of terms such as suspected, likely, concern for, or probable (associated with a specific diagnosis that is being evaluated, monitored, or treated as if it exists) are acceptable and can be coded in the inpatient setting, when documented at the
time of discharge.
Thank you,
Myra Oreilly RN, BSN
CDI Specialist
tiger text
Please use your independent medical judgment in providing your response.
--- NOTE | 2025-06-02 09:21 | CM ---
Addendum entered by Deanna Alberto 06/02/25 10:37:
Transportation forms completed and per Mag she now requests recent hemoglobin and HD flow sheet.
Original Note:
[phone] a request for an auth confirmed, [id number] from 06/01-06/08 and requested update to . CM to be notified shortly of updated dates for auth. Requested pt's clinical will be faxed to [facility] after
updated PT/OT notes [phone]. CM called to [facility] and left for Mag in admissions. Pending confirmation will set up plan for transfer to SNF today. CM will continue to follow for discharge planning needs.
Plan; transfer to SNF; please call to [phone]/[phone]
[2025-06-02 11:08] VITALS: BP 135/74
--- NOTE | 2025-06-02 11:20 | W.PN.NEPH.PH ---
Today's Communication / Plan
-
HD tomorrow
Assessment/Plan
-
55-year-old female with multiple medical comorbidities most notable for CIDP and end-stage renal disease on dialysis presents from [facility] due to hypoxia. Reportedly not on baseline O2 was noted to be hypoxic in the low 80s on 4
L nasal cannula. Per EMS improved to 100% on 15 L. She is unable to provide any history as she has baseline nonverbal status due to CIDP, reportedly is interactive with yes and no questions at baseline
Renal consultation for end-stage renal disease and a pulmonary edema. Currently she is on 6 L oxygen. She appears to be in no distress
Other history includes diabetes hypertension anemia of chronic disease COPD. She was a transfer from [facility] where she had a PEG tube placed at that admission.
Impression
ESRD Sunday at [facility]
Hypoxia history of COPD chronic nasal cannula at 4 L
Pulmonary edema
PEG tube
Right arm AV fistula
Plan.
HD tomorrow
Epogen for anemia
-
-
Date of Service: June 02, 2025
CC / HPI / ROS
-
Chief Complaint:
Altered mental status
History of Present Illness:
ESRD Sunday altered mental status improving
hemodynamically stable
Off antibiotics
tolerated HD yesterday
Review of Systems:
No fevers
No complaints
Labs
-
Labs:
WBC 7.1 10^3/uL (4.8-10.8) 06/02/25 06:14
RBC 3.06 10^6/uL (4.20-5.40) L 06/02/25 06:14
Hgb 10.0 g/dL (12.0-16.0) L 06/02/25 06:14
Hct 30.7 % (37.0-47.0) L 06/02/25 06:14
Plt Count 216 10^3/uL (130-400) 06/02/25 06:14
Sodium 132 mmol/L (135-145) L 06/02/25 06:14
Potassium 3.5 mmol/L (3.5-5.1) 06/02/25 06:14
Chloride 96 mmol/L (98-107) L 06/02/25 06:14
Carbon Dioxide 34 mmol/L (22-30) H 06/02/25 06:14
BUN 26 mg/dl (7-17) H 06/02/25 06:14
Creatinine 1.6 mg/dL (0.6-1.0) H 06/02/25 06:14
eGFR 37.62 06/02/25 06:14
Glucose 198 mg/dl (70-99) H 06/02/25 06:14
Calcium 9.7 mg/dl (8.4-10.2) 06/02/25 06:14
Phosphorus 4.2 mg/dl (2.5-4.5) 05/25/25 07:35
Albumin 3.0 g/dl (3.5-5.0) L 06/01/25 07:49
Physical Exam
-
Vital Signs:
Vital Signs
Temp Pulse Resp BP Pulse Ox
98 F 95 12 135/74 99
06/02/25 11:08 06/02/25 11:08 06/02/25 11:08 06/02/25 11:08 06/02/25 11:08
Cardiovascular:: Regular rate and rhythm
Respiratory:: Bilateral: Coarse
Lung Excursion:: Normal
Abdomen:: Nontender and Soft
Bowel Sounds:: Normal
Extremity Edema:: None: Bilateral:
[2025-06-02 12:01] LABS: Glucose - Point of Care 151 mg/dl (70-99)
--- NOTE | 2025-06-02 14:55 | W.DCSUMMARY ---
Addendum entered and electronically signed by Raymond Leary MD 06/02/25 21:27:
Read, reviewed, and agree. See same day progress note for additional details.
Adrien Leary MD
Original Note:
Documented by User: Bianca Rudolph MD, Resident 06/02/25 16:40
Discharge Summary
Discharge Data
Date of Admission: 05/24/25
Date of Discharge: 06/02/25
Total time spent discharging patient (in min): 55
-
Pending Results: No
Hospital Course
55-year-old female past medical history of CIDP contributing to dysphagia and PEG tube, nonverbal mental status, ESRD on hemodialysis M/W/F, hypertension, COPD, type 2 diabetes, diabetic neuropathy, anxiety/depression, hypothyroidism, obstructive
sleep apnea on CPAP, osteoporosis, scoliosis, tonic-clonic seizures, presenting from [facility] for acute on chronic hypoxic respiratory failure with O2 requirement increase from 4 L (baseline) to 15 L.
AHRF was due to pulmonary edema in the setting of ESRD and resolved with supplemental O2 and hemodialysis removing fluid.
Urine culture grew yeast 50,000 colonies. Ceftriaxone was started. Due to concern for contamination, urine culture was repeated and demonstrated Enterococcus faecalis 25,000 colonies and Lynn glabrata 50,000 colonies. Vancomycin was started
for the bacteria. ID was consulted and stated the low colony count is accident with a UTI. Vancomycin was discontinued.
Anemia was managed with Retacrit and 1 unit blood transfusion.
Her blood sugar remained elevated, so her long-acting insulin was increased from 68 units and short acting insulin was added every 6 hours, given she has continuous tube feeds. She was discharged on glargine 8 units nightly and Humalog 4 units
every 6 hours.
She was recently hospitalized at [facility] for nausea and vomiting and poor p.o. intake. She had PEG tube placed during admission there. At baseline, she has been unresponsive much of the time and intermittently answering yes or no questions at
best. No clear etiology could be found for this. History of seizures and recently taken off of Trileptal in March without any seizures noted since then. CM called [facility] and confirmed her baseline mental status: nonresponsive except for
one-word responses, dependent on others for ADLs.
Spoke with . 2 months ago, she had multiple seizures and stayed at [facility]. When they didn't have much else they could do much for her and sent her to [facility] rehab. She was able speak some sentences but would slow down after a
few sentences like she was 'running out of gas'. Antiepileptics were helping so discontinued. took her to [facility] for fluid in lungs. They plan to visit her 05/26/25. They [place] 2[place] hours away. She was her usual active self in 03/2025.
- She was diagnosed with CIDP 5 years ago. Infusion treatments weren't helping so discontinued.
CXR 05/24/2025
Bilateral pleural effusions and interstitial and alveolar pulmonary opacities, considered most suspicious for pulmonary edema.
CT head 05/24/2025
Moderate parenchymal atrophy, greater than expected for the patient's age. No intra- or extra-axial mass, hemorrhage, or fluid collection. Mild subcortical, deep, and periventricular white matter low-attenuation, compatible with changes of chronic
small vessel ischemic disease. Hyperostosis frontalis interna. The imaged paranasal sinuses are clear. Partial opacification of the right mastoid air cells.
IMPRESSION: No acute intracranial abnormality.
CT abdomen pelvis with p.o. contrast only 02/24/2025
1. ACUTE CYSTITIS with moderate urinary bladder wall thickening surrounded by mild edema.
2. Moderate-sized right and small left pleural effusions.
3. Moderate airspace consolidation in the lower lobes of both lungs. Diagnostic possibilities are (1) bilateral lower lobe pneumonia or (2) atelectasis.
4. Previous cholecystectomy.
5. Moderate chronic bilateral renal disease.
6. Mild diffuse colonic distention.
7. Percutaneous gastrostomy tube in place.
8. Complete collapse of the T11 vertebral body secondary to superior and inferior endplate fractures.
9. Severe osteoporosis.
10. Sacral decubitus ulcer posterior to the sacrococcygeal junction.
11. Mild diffuse anasarca.
Urinary Tract Infection due to enterococcus faecalis and lynn glabrata:
Suprapubic pain�CT abdomen pelvis with p.o. contrast: Acute cystitis. Moderate right and small left pleural effusions. Moderate airspace consolidations in lower lobes bilaterally, which could be bilateral lower lobe pneumonia or atelectasis.
Complete collapse of the T11 vertebral body secondary to superior and inferior endplate fractures. Sacral decubital ulcer
UA positive for UTI x 2. Change Christianson in between 2 samples
Urine culture #1: Yeast 50,000 colonies.
Urine culture #2: Lynn glabrata 50,000 colonies. Enterococcus faecalis 25,000 colonies (sensitive to ampicillin, nitrofurantoin, vancomycin)
Enterococcus faecalis:
� Ceftriaxone 05/25/25 to 05/27/2025 prior to bacterial identification
- Vancomycin with dialysis Sunday/Sunday/Sunday for 4 doses (8 days). First dose Sunday05/25/2025 and discontinued
Lynn glabrata
- Christianson dc'd
- urine culture was not a clean catch
ID consulted: Low colonies for both pathogen not consistent with UTI. No antibacterial treatment recommended
� Vancomycin discontinued
ESRD on HD
� Hemodialysis Sunday. Received ultrafiltration 05/26/2025 for volume overload with anasarca
- Nephrology following
- weight on admission 86.3, down to 81.42 kgs
Diabetes Mellitus, Type II
A1c 5.2%
-Continue Nepro dialysis nutrition at 60ml/hr
-diarrhea 06/01/2025. fecal management system. Continue for 24 hours
On glargine 6 units and lispro 1 unit AC at home.
DM management consulted
� Glargine 8 units
� NovoLog 4 units every 6 hours (continuous tube feeds). low resistance.
Anemia of chronic disease
Hemoglobin 7.7 on admission 05/24/2025. Hemoglobin 7.0 on 05/25/2025
Iron 34 low, TIBC 186 low, percent saturation 18 low, ferritin 1180 high
- 10,000 units Epogen given 05/25/25, 05/27/25 with HD
� Consent for blood products obtained from with co-resident as witness. Completed blood products consent form
- 1 unit PRBC given 05/27/2025
Chronic Inflammatory Demyelinating Polyneuropathy
Dysphagia s/p PEG tube
-All oral meds given via PEG tube
-Reduced water flush from 40ml/hr to 25ml/hr due to volume overload
-Continue Nepro dialysis nutrition at 60ml/hr
Acute on Chronic Hypoxic Respiratory Failure secondary to Acute Pulmonary Edema due to Volume Overload�resolved
-Continue supplemental oxygen and wean as able. On 4 L on 05/26/2025, which is her home O2 requirement
-Patient received Lasix 40mg IV in ED
-Consulted Nephrology for volume management via dialysis
� Flu panel negative
� Blood cultures x 2; no growth to date
5/6 holosystolic murmur best heard at [facility]
� Echo 05/28/2025: EF 60 to 65%. No significant valvular disease
Murmur likely a referred from AV fistula
Diabetic Neuropathy
- Discontinued gabapentin, given SUSAN
Hyperlipidemia
-Continue Crestor
Hypothyroidism
-Continue levothyroxine
COPD, no acute exacerbation
-Per old records patient previously on Symbicort
-Continue Budesonide Neb BID
-Continue DuoNeb PRN
Anxiety / Depression
-Restart buspirone at discharge
Discharge Plan
-
Patient Disposition: Senior Care/SNF
Discharge Diagnosis/Procedures: Hypoxemia
ESRD on hemodialysis
Anemia of chronic disease
Type II DM. Diabetic neuropathy
Hyperlipidemia
Hypothyroidism
COPD
CIDP
Anxiety/depression
Condition: Fair
Diet: Other diet
Additional Diets: nepro tube feeds @ 60mls/hr
Activity: With assistance and As tolerated
Driving Restrictions: No driving
Bathing Restrictions: None
Referrals:
Rocío D eLa Cruz MD [Family Provider] - in less than 1 week
Additional Discharge Medication Instructions: Please take your new insulin regimen of 8 units long-acting glargine at night and 4 units Humalog every 6 hours.
For the diarrhea, please use fecal management system for 24 hours and take the probiotic.
Please stop taking gabapentin and tamsulosin.
Labs per PCP. It was a pleasure to be a part of your care team.
Prescriptions:
New
insulin lispro [Humalog KwikPen Insulin] 100 unit/mL Insulin Pen
4 unit SC Q6 Qty: 5 0RF
Rx Instructions:
GIVE 4 UNITS AT 0800, 1200, 1800, 2400
insulin glargine [Lantus Solostar U-100 Insulin] 100 unit/mL (3 mL) Insulin Pen
8 unit SC DAILY Qty: 5 0RF
Rx Instructions:
GIVE DAILY IN THE MORNING
(DME) pen needle, diabetic [Elenita Pen Needle] 32 gauge x 5/32' Needle
Qty: 200 0RF
Rx Instructions:
1 box of 200 needles
refer to insulin instructions
Lactobac/Bifidobac [Visbiome]
1 cap PO DAILY Qty: 30 0RF
Continued
acetaminophen 325 mg Tablet
650 mg feeding tube Q6H PRN (Reason: mild pain/fever)
ondansetron HCl 4 mg Tablet
4 mg feeding tube Q8H PRN (Reason: nausea/vomiting)
thiamine HCl (vitamin B1) 100 mg Tablet
100 mg FEEDING TUBE DAILY
estradiol 1 mg Tablet
1 mg feeding tube HS
levothyroxine 50 mcg Tablet
100 mcg feeding tube DAILY
bisacodyl 10 mg Suppository
10 mg DC DAILY PRN (Reason: if MOM ineffective)
buspirone 10 mg Tablet
20 mg feeding tube DAILY
folic acid 1 mg Tablet
1 mg feeding tube DAILY
Renal-Jessica 0.8 mg Tablet
1 tab FEEDING TUBE DAILY
albuterol sulfate 90 mcg/actuation Hfa Aerosol Inhaler
2 puff INHALATION TID PRN (Reason: sob)
sorbitol 70 % Solution
30 ml miscellaneous DAILYPRN PRN (Reason: constipation)
midodrine 10 mg Tablet
10 mg feeding tube TIDPRN PRN (Reason: hypotension, PRN dialysis)
rosuvastatin 10 mg Tablet
10 mg feeding tube DAILY
Baqsimi 3 mg/actuation [place],Non-Aerosol
3 mg INTRANASAL DAILYPRN PRN (Reason: hypoglycemia)
Discontinued
gabapentin 250 mg/5 mL Solution
100 mg feeding tube HS
tamsulosin [Flomax] 0.4 mg Capsule
0.4 mg HS
Rx Instructions:
give via feeding tube
insulin lispro [Humalog KwikPen Insulin] 100 unit/mL Insulin Pen
1 sliding scale dose SC QID
Rx Instructions:
80-150=0
151-200=1
201-250=2
251-300=3
301-350=4
351-400=5
insulin glargine 100 unit/mL (3 mL) Insulin Pen
9 unit SC DAILY
Discharge Orders:
Discharge Patient (As Directed); Ordered 06/02/25
Ordered By: Bianca Rudloph
Discharge Date and Time
Discharge Date/Time: 06/02/25 14:32
Print Language: [place]

Documented by User: Raymond Leary MD 06/02/25 21:21
Discharge Summary
Discharge Data
Date of Admission: 05/24/25
Date of Discharge: 06/02/25
Discharge Plan
-
Patient Disposition: Senior Care/SNF
Discharge Diagnosis/Procedures: Hypoxemia
ESRD on hemodialysis
Anemia of chronic disease
Type II DM. Diabetic neuropathy
Hyperlipidemia
Hypothyroidism
COPD
CIDP
Anxiety/depression
Condition: Fair
Diet: Other diet
Additional Diets: nepro tube feeds @ 60mls/hr
Activity: With assistance and As tolerated
Driving Restrictions: No driving
Bathing Restrictions: None
Referrals:
Rocío De La Cruz MD [Family Provider] - in less than 1 week
Additional Discharge Medication Instructions: Please take your new insulin regimen of 8 units long-acting glargine at night and 4 units Humalog every 6 hours.
For the diarrhea, please use fecal management system for 24 hours and take the probiotic.
Please stop taking gabapentin and tamsulosin.
Labs per PCP. It was a pleasure to be a part of your care team.
Prescriptions:
New
insulin lispro [Humalog KwikPen Insulin] 100 unit/mL Insulin Pen
4 unit SC Q6 Qty: 5 0RF
Rx Instructions:
GIVE 4 UNITS AT 0800, 1200, 1800, 2400
insulin glargine [Lantus Solostar U-100 Insulin] 100 unit/mL (3 mL) Insulin Pen
8 unit SC DAILY Qty: 5 0RF
Rx Instructions:
GIVE DAILY IN THE MORNING
(DME) pen needle, diabetic [Elenita Pen Needle] 32 gauge x 5/32' Needle
Qty: 200 0RF
Rx Instructions:
1 box of 200 needles
refer to insulin instructions
Lactobac/Bifidobac [Visbiome]
1 cap PO DAILY Qty: 30 0RF
Continued
acetaminophen 325 mg Tablet
650 mg feeding tube Q6H PRN (Reason: mild pain/fever)
ondansetron HCl 4 mg Tablet
4 mg feeding tube Q8H PRN (Reason: nausea/vomiting)
thiamine HCl (vitamin B1) 100 mg Tablet
100 mg FEEDING TUBE DAILY
estradiol 1 mg Tablet
1 mg feeding tube HS
levothyroxine 50 mcg Tablet
100 mcg feeding tube DAILY
bisacodyl 10 mg Suppository
10 mg DC DAILY PRN (Reason: if MOM ineffective)
buspirone 10 mg Tablet
20 mg feeding tube DAILY
folic acid 1 mg Tablet
1 mg feeding tube DAILY
Renal-Jessica 0.8 mg Tablet
1 tab FEEDING TUBE DAILY
albuterol sulfate 90 mcg/actuation Hfa Aerosol Inhaler
2 puff INHALATION TID PRN (Reason: sob)
sorbitol 70 % Solution
30 ml miscellaneous DAILYPRN PRN (Reason: constipation)
midodrine 10 mg Tablet
10 mg feeding tube TIDPRN PRN (Reason: hypotension, PRN dialysis)
rosuvastatin 10 mg Tablet
10 mg feeding tube DAILY
Baqsimi 3 mg/actuation [place],Non-Aerosol
3 mg INTRANASAL DAILYPRN PRN (Reason: hypoglycemia)
Discontinued
gabapentin 250 mg/5 mL Solution
100 mg feeding tube HS
tamsulosin [Flomax] 0.4 mg Capsule
0.4 mg HS
Rx Instructions:
give via feeding tube
insulin lispro [Humalog KwikPen Insulin] 100 unit/mL Insulin Pen
1 sliding scale dose SC QID
Rx Instructions:
80-150=0
151-200=1
201-250=2
251-300=3
301-350=4
351-400=5
insulin glargine 100 unit/mL (3 mL) Insulin Pen
9 unit SC DAILY
Discharge Orders:
Discharge Patient (As Directed); Ordered 06/02/25
Ordered By: Bianca Rudolph
Discharge Date and Time
Discharge Date/Time: 06/02/25 14:32
Print Language: [place]
== END 2025-06-02 14:32 | DRG 189 ==
LOC: 2 NORTH 16:35
PROVIDERS: Physician Assistant; Physician Assistant Medical; Specialist; ADMITTING PHYSICIAN Hospitalist; ATTENDING PHYSICIAN Family Medicine; CONSULT PHYSICIAN Internal Medicine Nephrology; CONSULT PHYSICIAN Student in an Organized Health Care Education/Training Program; EMERGENCY PHYSICIAN Emergency Medicine; FAMILY PHYSICIAN Internal Medicine
PROC: 5A1D70Z Performance of Urinary Filtration, Intermittent, Less than 6 Hours Per Day (ICD-10-PCS; 2025-05-25)
PROC: 30233N1 Transfusion of Nonautologous Red Blood Cells into Peripheral Vein, Percutaneous Approach (ICD-10-PCS; 2025-05-27)
DX: J96.21 Acute and chronic respiratory failure with hypoxia (principal); N18.6 End stage renal disease; R53.2 Functional quadriplegia; G61.81 Chronic inflammatory demyelinating polyneuritis; J90 Pleural effusion, not elsewhere classified; J81.1 Chronic pulmonary edema; E87.1 Hypo-osmolality and hyponatremia; N30.00 Acute cystitis without hematuria; M48.54XA Collapsed vertebra, not elsewhere classified, thoracic region, initial encounter for fracture; E87.20 Acidosis, unspecified; I13.11 Hypertensive heart and chronic kidney disease without heart failure, with stage 5 chronic kidney disease, or end stage renal disease; Z99.2 Dependence on renal dialysis; D63.1 Anemia in chronic kidney disease; E11.22 Type 2 diabetes mellitus with diabetic chronic kidney disease; E11.40 Type 2 diabetes mellitus with diabetic neuropathy, unspecified; E78.5 Hyperlipidemia, unspecified; E03.9 Hypothyroidism, unspecified; J44.9 Chronic obstructive pulmonary disease, unspecified; F32.A Depression, unspecified; F41.9 Anxiety disorder, unspecified; M81.0 Age-related osteoporosis without current pathological fracture; M41.9 Scoliosis, unspecified; K21.9 Gastro-esophageal reflux disease without esophagitis; G47.33 Obstructive sleep apnea (adult) (pediatric); E66.9 Obesity, unspecified; D53.9 Nutritional anemia, unspecified; Z87.891 Personal history of nicotine dependence; Z88.0 Allergy status to penicillin; Z79.890 Hormone replacement therapy; E87.70 Fluid overload, unspecified; Z93.1 Gastrostomy status; R13.10 Dysphagia, unspecified; Z66 Do not resuscitate; B95.2 Enterococcus as the cause of diseases classified elsewhere; L89.159 Pressure ulcer of sacral region, unspecified stage; Z90.49 Acquired absence of other specified parts of digestive tract; Z79.899 Other long term (current) drug therapy
CPT/HCPCS: 70450; 71045; 74176; 80048; 80053; 81003; 81015; 82607; 82728; 82746; 82805; 82962; 83036; 83540; 83550; 83605; 83735; 84100; 84443; 84484; 85025; 85027; 86706; 86850; 86900; 86901; 86920; 87040; 87070; 87077; 87086; 87106; 87147; 87186; 87340; 87502; 87811; 93306; 94640; 96374; 97163; 97167; 97530; 99285; G0257; P9016; P9047; Q5106